=== PATIENT | female | born 1995 | race Caucasian/White ===

== ENCOUNTER 2017-11-22 00:18 | Outpatient (CLI) | payer BC, SELFPAY ==
[2017-11-22] MEDS: Gadoterate meglumine 20 ML VIAL 15 ML IVP (08:35)
--- NOTE | 2017-11-22 08:45 | DI.MRI_ITS ---
SYMPTOM/DIAGNOSIS: ATYPICAL HEADACHE, R51, NEW ONSET, ? TRIGEMINAL NEURALGIA, VS SUNCT/JARVIS, ? SECONDARY HEADACHE BRAIN MRI: Pre and post contrast examination was performed. No priors. There is normal signal. The diffusion weighted images have a normal appearance. The hem sensitive images show no evidence of intracranial hemorrhage. No intracranial mass, midline shift or mass effect is identified. The ventricles are intact. The basilar cisterns are patent. There is a normal flow void in the [place]. The visualized paranasal sinuses are clear. The pituitary gland is unremarkable. Post contrast images show no enhancing lesions. IMPRESSION; Negative MRI of the brain.
== END 2017-11-22 00:38 ==
PROVIDERS: PCP Internal Medicine; Visit Provider Nurse Practitioner
DX: R51 Headache (principal)
CPT/HCPCS: 70553

== ENCOUNTER 2018-05-20 11:38 | Outpatient (REF) | payer BC, SELFPAY ==
--- NOTE | 2018-05-20 11:15 | PAPFT_PTH ---
PATIENT: Nidia Moore LOC: [facility] U#:[id number] AGE/SX: 23/F ROOM: RE05/20/[address]: MINE Mckeon : 1995 BED: DIS: 05/20/2018 SPEC #: [id number] RECD: 05/20/18 18:09 STATUS: LAUREN HERNÁNDEZ #: [id number] OLIVIA: 05/20/18 11:[address]: Jennifer Nuñez DEPT: [facility] Cytology RECD BY: Haleigh Boyce ENTERED: 05/20/18 18:10 SP TYPE: PAPFT OTHR DR: Joe Villanueva Tissues: 1 - CX/ENDOCX FOR PAP SMEARS Procedures: PAP THIN PREP/UVM Screening Comments: [id number]
== END 2018-05-20 11:58 ==
LOC: LBN 11:38
PROVIDERS: PCP Internal Medicine; Visit Provider Nurse Practitioner Family
DX: Z12.4 Encounter for screening for malignant neoplasm of cervix (principal)
CPT/HCPCS: 88142

== ENCOUNTER 2019-01-23 10:35 | Outpatient (CLI) | payer BC, SELFPAY ==
[2019-01-23 12:50] LABS: HCG Quant, Pregnancy 17 mIU/mL (1-3); TSH 4.08 uIU/mL (0.36-3.74)
[2019-01-23 13:14] LABS: FREE T4 0.97 ng/dL (0.76-1.46)
== END 2019-01-23 10:55 ==
PROVIDERS: PCP Internal Medicine; Visit Provider Nurse Practitioner Family
DX: E03.9 Hypothyroidism, unspecified (principal); N92.6 Irregular menstruation, unspecified
CPT/HCPCS: 36415; 84439; 84443; 84702

== ENCOUNTER 2019-01-27 08:31 | Outpatient (CLI) | payer BC, SELFPAY ==
[2019-01-27 09:18] LABS: HCG Quant, Pregnancy 198 mIU/mL (1-3)
== END 2019-01-27 08:51 ==
PROVIDERS: PCP Internal Medicine; Visit Provider Nurse Practitioner Family
DX: N92.6 Irregular menstruation, unspecified (principal)
CPT/HCPCS: 36415; 84702

== ENCOUNTER 2019-02-04 14:22 | Outpatient (CLI) | payer BC, SELFPAY ==
--- NOTE | 2019-02-04 15:02 | DI.US_ITS ---
EXAM: US OB TRANSVAGINAL CLINICAL HISTORY: 6 WEEKS BY LMP, CONSISTENT UNILATERAL PAIN R/O ECTOPIC, Z32.1 TECHNIQUE: Ultrasound performed using standard protocol. Transabdominal and transvaginal exams wer e performed. COMPARISON: No exams were available for comparison FINDINGS: The uterus measures 7.2 x 3.8 x 1.8. The right ovary appears normal. Gestational sac is noted withi n the uterus seen on the transvaginal images. The yolk sac is seen. No pole is able to be vis ualized at this time. The gestational sac diameter corresponds to 5 weeks 5 days. No free fluid or hydronephrosis is seen. IMPRESSION: Gestational sac within the endometrium with measurements corresponding to 5 weeks 5 days. No p ole is visible. Correlation with beta hCG values is recommended.
== END 2019-02-04 14:42 ==
PROVIDERS: PCP Internal Medicine; Visit Provider Advanced Practice Midwife
DX: Z32.01 Encounter for pregnancy test, result positive (principal); Z3A.01 Less than 8 weeks gestation of pregnancy
CPT/HCPCS: 76817

== ENCOUNTER 2019-03-06 09:47 | Outpatient (CLI) | payer BC, SELFPAY ==
[2019-03-06 10:20] LABS: Absolute Basophil Count 0.01 k/cumm (0.0-0.2); Absolute Eosinophil Count 0.09 k/cumm (0.0-0.7); Absolute Lymphocyte Count 1.44 k/cumm (1.2-3.4); Absolute Monocyte Count 0.49 k/cumm (0.11-0.7); Absolute Neutrophil Count 4.98 k/cumm (1.2-6.7); Basophils % 0.1; Eosinophils % 1.3; HGB 13.6 g/dL (12.0-15.5); Lymphocytes % 20.5; Mean Corp. HGB Concentration 34.9 g/dL (32.0-36.0); Mean Corpuscular Hemoglobin 30.6 pg (27.0-33.0); Mean Corpuscular Volume 87.8 fL (80-95); Mean Platelet Volume 9.4 fL (8.0-11.0); Neutrophils % 71.1; Platelet Count 276 x1000/uL (130-400); RBC 4.44 m/cumm (4.00-5.20); RBC Distribution Width 12.2 % (11.7-14.6); White Blood Cell Count 7.01 k/cumm (4.4-10.8)
[2019-03-06 11:23] LABS: TSH (W/Ref FT4) 1.72 uIU/mL (0.36-3.74)
[2019-03-07 09:17] LABS: Hepatitis B Surface Ag Negative (Negative)
[2019-03-07 10:48] LABS: Hepatitis C Ab w Rflx HCV PCR Negative (Negative)
[2019-03-07 10:49] LABS: HIV-1/2 Ag & Ab Screen Negative (Negative)
[2019-03-07 11:48] LABS: Varicella IgG Antibody Positive (See Note)
[2019-03-07 14:06] LABS: Rubella IgG Ab (UVM) Positive (See Note)
[2019-03-07 16:26] LABS: Syphilis Total Ab w/Reflex Nonreactive (Nonreactive)
== END 2019-03-06 10:07 ==
PROVIDERS: PCP Internal Medicine; Visit Provider Advanced Practice Midwife
DX: Z34.91 Encounter for supervision of normal pregnancy, unspecified, first trimester (principal); Z11.4 Encounter for screening for human immunodeficiency virus [HIV]; Z11.59 Encounter for screening for other viral diseases; Z01.84 Encounter for antibody response examination
CPT/HCPCS: 36415; 80307; 86787; 86803; 86850; 86900; 86901; 87340; 87389; 84443; 85025; 86762; 86780; 87086

== ENCOUNTER 2019-03-06 10:54 | Outpatient (REF) | payer BC, SELFPAY ==
[2019-03-06 11:37] LABS: *AMPHETAMINES SCREEN URINE Negative (Negative); *BARBITURATES SCREEN URINE Negative (Negative); *BENZODIAZEPINES SCREEN URINE Negative (Negative); Cannabinoids THC Negative (Negative); Cocaine Screen,Urine Negative (Negative); METHADONE URINE SCREEN Negative (Negative); OPIATES URINE SCREEN Negative (Negative)
[2019-03-06 11:38] LABS: Tricyclic Antidepressants Negative (Negative)
[2019-03-07 13:00] LABS: Chlamydia Result Negative (Negative); GC Result Negative (Negative)
[2019-03-11 13:57] LABS: Buprenorphine Negative; Norbuprenorphine Negative
== END 2019-03-06 11:14 ==
LOC: LBN 10:54
PROVIDERS: PCP Internal Medicine; Visit Provider Advanced Practice Midwife
DX: Z34.91 Encounter for supervision of normal pregnancy, unspecified, first trimester (principal); Z11.3 Encounter for screening for infections with a predominantly sexual mode of transmission
CPT/HCPCS: 80307; 87491; 87591; 87086

== ENCOUNTER 2019-03-18 09:19 | Outpatient (CLI) | payer BC, SELFPAY ==
[2019-03-18 10:16] LABS: Kit/Specimen SENT
[2019-03-22 01:38] LABS: Result Summary NEGATIVE; Specimen WB Whole Blood
[2019-03-22 01:47] LABS: Specimen WB Whole Blood
[2019-03-31 00:01] LABS: Result Summary NEGATIVE; Specimen WB Whole Blood
== END 2019-03-18 09:39 ==
PROVIDERS: PCP Internal Medicine; Visit Provider Advanced Practice Midwife
DX: Z34.91 Encounter for supervision of normal pregnancy, unspecified, first trimester (principal); Z36.89 Encounter for other specified antenatal screening
CPT/HCPCS: 36415; 81329; 86652; 81220

== ENCOUNTER 2019-05-13 02:14 | Outpatient (CLI) | payer BC, SELFPAY ==
--- NOTE | 2019-05-13 09:45 | DI.US_ITS ---
EXAM: US OB 2-3 TRIMESTER CLINICAL HISTORY: 18 wk anatomy survey, Z34.90 TECHNIQUE: Ultrasound performed using standard protocol. COMPARISON: US OB TRANSVAGINAL from 02/04/2019 FINDINGS: Ob ultrasound was performed according to the 2nd trimester protocol. biometry is consistent wi th gestational age of 18 weeks 0 days and EDC of 10/07/2019. Placenta is posterior with no evidence of placenta previa. There is a normal quantity of amniotic fluid. anomaly screen is within normal limits as per the attached checklist. heart rate was 162 BPM. DATA REPOSITORY:
== END 2019-05-13 02:34 ==
PROVIDERS: PCP Internal Medicine; Visit Provider Advanced Practice Midwife
DX: Z34.92 Encounter for supervision of normal pregnancy, unspecified, second trimester (principal); Z3A.18 18 weeks gestation of pregnancy
CPT/HCPCS: 76805

== ENCOUNTER 2019-07-15 01:47 | Outpatient (CLI) | payer BC, SELFPAY ==
[2019-07-15 08:33] LABS: TSH (W/Ref FT4) 2.39 uIU/mL (0.36-3.74)
== END 2019-07-15 02:07 ==
PROVIDERS: PCP Internal Medicine; Visit Provider Advanced Practice Midwife
DX: E03.9 Hypothyroidism, unspecified (principal)
CPT/HCPCS: 84443

== ENCOUNTER 2019-07-22 04:39 | Outpatient (CLI) | payer BC, SELFPAY ==
[2019-07-22 10:57] LABS: HCT 40.5 % (36.0-46.0); HGB 14.2 g/dL (12.0-15.5); Mean Corp. HGB Concentration 35.1 g/dL (32.0-36.0); Mean Corpuscular Hemoglobin 31.3 pg (27.0-33.0); Mean Corpuscular Volume 89.2 fL (80-95); Mean Platelet Volume 10.4 fL (8.0-11.0); Platelet Count 240 x1000/uL (130-400); RBC 4.54 m/cumm (4.00-5.20); RBC Distribution Width 12.9 % (11.7-14.6); White Blood Cell Count 9.98 k/cumm (4.4-10.8)
[2019-07-22 11:02] LABS: Glucose,1 Hr (Glucola) 110 mg/dL (80-140)
== END 2019-07-22 04:59 ==
PROVIDERS: PCP Internal Medicine; Visit Provider Advanced Practice Midwife
DX: Z34.93 Encounter for supervision of normal pregnancy, unspecified, third trimester (principal)
CPT/HCPCS: 36415; 82950; 85027

== ENCOUNTER 2019-09-16 10:22 | Outpatient (CLI) | payer BC, SELFPAY ==
[2019-09-16 11:32] LABS: HGB 15.3 g/dL (11.2-15.7); RBC 4.95 10^6/uL (3.93-5.22); WBC 10.71 10^3/uL (4.4-10.8)
[2019-09-16 11:33] LABS: HCT 44.2 % (36.0-46.0); MCH 30.9 pg (27.0-33.0); MCHC 34.6 % (32.0-36.0); MCV 89.3 fL (80-95); MPV 10.5 fL (8.0-11.0); Platelet Count 200 10^3/uL (130-400); RDW 12.8 % (11.7-14.6)
[2019-09-16 11:48] LABS: ALT 17 U/L (14-59); AST 17 U/L (15-37); Albumin 2.7 g/dL (3.4-5.0); Alkaline Phosphatase 161 U/L (46-116); Anion Gap 9.1 mmol/L (3-11); BUN 11 mg/dL (7-18); Bilirubin, Total 0.5 mg/dL (0.2-1.0); CO2 23.9 mmol/L (21.0-32.0); CREATININE 0.57 mg/dL (0.55-1.02); Calcium 8.8 mg/dL (8.5-10.1); Chloride 102 mmol/L (98-107); Glucose 74 mg/dL (74-106); Potassium 4.1 mmol/L (3.5-5.1); Sodium 135 mmol/L (136-145); Total Protein 5.9 g/dL (6.4-8.2); Uric Acid 4.4 mg/dL (2.6-6.0)
[2019-09-16 11:58] LABS: COMMENT (LAB VIEW ONLY) 76.52 mg/dL; PROTEIN 13.6 mg/dL; Prot/Crea Ur Ratio 0.17
[2019-09-16 12:24] LABS: TSH 2.05 uIU/mL (0.36-3.74)
[2019-09-16 12:31] LABS: FREE T4 1.01 ng/dL (0.76-1.46)
== END 2019-09-16 10:42 ==
PROVIDERS: Advanced Practice Midwife; PCP Internal Medicine; Visit Provider Advanced Practice Midwife
DX: O13.3 Gestational [pregnancy-induced] hypertension without significant proteinuria, third trimester (principal); Z3A.36 36 weeks gestation of pregnancy
CPT/HCPCS: 36415; 80053; 85027; 59025; 82565; 84156; 84439; 84443; 84550

== ENCOUNTER 2019-09-16 12:50 | Outpatient (REF) | payer BC, SELFPAY ==
[2019-09-16 15:45] LABS: *AMPHETAMINES SCREEN URINE Negative (Negative); *BARBITURATES SCREEN URINE Negative (Negative); *BENZODIAZEPINES SCREEN URINE Negative (Negative); Cannabinoids THC Negative (Negative); Cocaine Screen,Urine Negative (Negative); METHADONE URINE SCREEN Negative (Negative); OPIATES URINE SCREEN Negative (Negative); Tricyclic Antidepressants Negative (Negative)
[2019-09-22 13:20] LABS: Misc Referral (UVM) See Comments
[2019-09-25 13:16] LABS: Buprenorphine Negative; Norbuprenorphine Negative
== END 2019-09-16 13:10 ==
LOC: LBN 12:50
PROVIDERS: PCP Internal Medicine; Visit Provider Advanced Practice Midwife
DX: Z34.90 Encounter for supervision of normal pregnancy, unspecified, unspecified trimester (principal)
CPT/HCPCS: 80307; 87653; 87081

== ENCOUNTER 2019-09-22 15:04 | Outpatient (REF) | payer BC, SELFPAY | END 2019-09-22 15:24 | LOC: LBN 15:04 | PROVIDERS: PCP Internal Medicine; Visit Provider Advanced Practice Midwife | DX: Z34.90 Encounter for supervision of normal pregnancy, unspecified, unspecified trimester (principal) | CPT/HCPCS: 87081 ==

== ENCOUNTER 2019-09-29 11:40 | Outpatient (CLI) | payer BC, SELFPAY ==
[2019-09-29 12:39] LABS: HCT 41.2 % (36.0-46.0); HGB 14.1 g/dL (11.2-15.7); MCH 30.7 pg (27.0-33.0); MCHC 34.2 % (32.0-36.0); MCV 89.8 fL (80-95); MPV 11.2 fL (8.0-11.0); Platelet Count 218 10^3/uL (130-400); RBC 4.59 10^6/uL (3.93-5.22); RDW 12.2 % (11.7-14.6); RDW-SD 40.1 fL; WBC 9.17 10^3/uL (4.4-10.8)
[2019-09-29 13:37] LABS: PROTEIN 15.9 mg/dL
[2019-09-29 13:38] LABS: COMMENT (LAB VIEW ONLY) 123.32 mg/dL; Prot/Crea Ur Ratio 0.12
[2019-09-29 13:40] LABS: ALT 18 U/L (14-59); AST 16 U/L (15-37); Albumin 2.5 g/dL (3.4-5.0); Alkaline Phosphatase 159 U/L (46-116); Anion Gap 10.5 mmol/L (3-11); BUN 11 mg/dL (7-18); Bilirubin, Total 0.3 mg/dL (0.2-1.0); CO2 21.5 mmol/L (21.0-32.0); CREATININE 0.55 mg/dL (0.55-1.02); Calcium 8.5 mg/dL (8.5-10.1); Chloride 105 mmol/L (98-107); Glucose 78 mg/dL (74-106); Potassium 4.2 mmol/L (3.5-5.1); Sodium 137 mmol/L (136-145); Uric Acid 4.7 mg/dL (2.6-6.0)
== END 2019-09-29 12:00 ==
PROVIDERS: PCP Internal Medicine; Visit Provider Advanced Practice Midwife
DX: O13.3 Gestational [pregnancy-induced] hypertension without significant proteinuria, third trimester (principal); Z3A.37 37 weeks gestation of pregnancy
CPT/HCPCS: 36415; 80053; 85027; 59025; 82565; 84156; 84550

== ENCOUNTER 2019-10-10 03:11 | Outpatient (CLI) | payer BC, SELFPAY ==
[2019-10-10 15:08] LABS: HCT 41.3 % (36.0-46.0); HGB 14.5 g/dL (11.2-15.7); MCH 31.7 pg (27.0-33.0); MCHC 35.1 % (32.0-36.0); MCV 90.2 fL (80-95); MPV 11.2 fL (8.0-11.0); Platelet Count 222 10^3/uL (130-400); RBC 4.58 10^6/uL (3.93-5.22); RDW 12.2 % (11.7-14.6); RDW-SD 39.9 fL; WBC 9.17 10^3/uL (4.4-10.8)
[2019-10-10 15:48] LABS: ALT 19 U/L (14-59); AST 18 U/L (15-37); Albumin 2.7 g/dL (3.4-5.0); Alkaline Phosphatase 174 U/L (46-116); Anion Gap 11.2 mmol/L (3-11); BUN 11 mg/dL (7-18); Bilirubin, Total 0.3 mg/dL (0.2-1.0); CO2 22.8 mmol/L (21.0-32.0); CREATININE 0.76 mg/dL (0.55-1.02); Calcium 8.5 mg/dL (8.5-10.1); Chloride 104 mmol/L (98-107); Glucose 131 mg/dL (74-106); Potassium 3.6 mmol/L (3.5-5.1); Sodium 138 mmol/L (136-145); Total Protein 5.3 g/dL (6.4-8.2); Uric Acid 5.5 mg/dL (2.6-6.0)
== END 2019-10-10 03:31 ==
PROVIDERS: PCP Internal Medicine; Visit Provider Advanced Practice Midwife
DX: O13.3 Gestational [pregnancy-induced] hypertension without significant proteinuria, third trimester (principal)
CPT/HCPCS: 36415; 80053; 85027; 84550

== ENCOUNTER 2019-10-14 09:53 | Outpatient (REF) | payer BC, SELFPAY ==
[2019-10-14 12:02] LABS: PROTEIN 40.2 mg/dL
[2019-10-14 12:03] LABS: COMMENT (LAB VIEW ONLY) 276.36 mg/dL; Prot/Crea Ur Ratio 0.14
== END 2019-10-14 10:13 ==
LOC: LBN 09:53
PROVIDERS: PCP Internal Medicine; Visit Provider Advanced Practice Midwife
DX: O16.3 Unspecified maternal hypertension, third trimester (principal)
CPT/HCPCS: 82565; 84156

== ENCOUNTER 2019-10-14 23:59 | Inpatient (IN) | payer BC, SELFPAY ==
[2019-10-15 05:23] LABS: Abs Immature Grans 0.06 10^3/uL (0.0-0.06); Absolute Basophil Count 0.02 10^3/uL (0.0-0.2); Absolute Eosinophil Count 0.02 10^3/uL (0.0-0.7); Absolute Lymphocyte Count 1.19 10^3/uL (1.2-3.4); Absolute Neutrophil Count 13.91 10^3/uL (1.2-6.7); Basophils % 0.1; Eosinophils % 0.1; HCT 43.1 % (36.0-46.0); HGB 14.9 g/dL (11.2-15.7); Immature Grans % 0.4; Lymphocytes % 7.5; MCHC 34.6 % (32.0-36.0); MCV 89.6 fL (80-95); MPV 11.2 fL (8.0-11.0); Monocytes % 4.5; Neutrophils % 87.4; Nucleated RBC 0 %; Platelet Count 227 10^3/uL (130-400); RBC 4.81 10^6/uL (3.93-5.22); RDW 11.9 % (11.7-14.6); RDW-SD 39.1 fL; WBC 15.91 10^3/uL (4.4-10.8)
[2019-10-15 05:26] LABS: Absolute Monocyte Count 0.72 10^3/uL (0.1-0.8)
[2019-10-15] MEDS: FentaNYL/ROPIvacaine 2 mcg/ml and 0.1% 200 ML CADD Cassette EP ×2 (07:06→17:13)
[2019-10-15] MEDS: Oxytocin/Normal Saline 30 UNITS/500 ML BAG IV (11:09)
[2019-10-15] MEDS: Lactated Ringers 1,000 ML 125 ML IV ×2 (11:45→16:34)
[2019-10-15 12:57] LABS: COVID-19 RT-PCR UVMMC Result Negative (Negative)
[2019-10-15] MEDS: Hamamelis Leaf/Glycerin 100 EACH BOX PR (20:48)
[2019-10-15] MEDS: Acetaminophen 325 MG TAB 650 MG PO (20:48)
[2019-10-15] MEDS: Docusate Sodium 100 MG CAP PO (20:48)
[2019-10-15] MEDS: Ibuprofen 600 MG TAB PO (20:48)
[2019-10-15] MEDS: Levothyroxine 50 MCG TAB PO (22:05)
[2019-10-16 06:36] LABS: HCT 33.5 % (36.0-46.0); HGB 11.7 g/dL (11.2-15.7); MCH 31.3 pg (27.0-33.0); MCHC 34.9 % (32.0-36.0); MCV 89.6 fL (80-95); MPV 11.1 fL (8.0-11.0); Platelet Count 193 10^3/uL (130-400); RBC 3.74 10^6/uL (3.93-5.22); RDW 12.3 % (11.7-14.6); RDW-SD 39.9 fL; WBC 17.65 10^3/uL (4.4-10.8)
[2019-10-16] MEDS: Acetaminophen 325 MG TAB 650 MG PO ×2 (08:07→22:08)
[2019-10-16] MEDS: Ibuprofen 600 MG TAB PO ×3 (08:07→22:08)
[2019-10-16] MEDS: Docusate Sodium 100 MG CAP PO (16:29)
[2019-10-16] MEDS: Levothyroxine 50 MCG TAB PO (22:08)
[2019-10-17] MEDS: Acetaminophen 325 MG TAB 650 MG PO ×2 (09:04→15:51)
[2019-10-17] MEDS: Ibuprofen 600 MG TAB PO ×3 (09:05→21:47)
[2019-10-17] MEDS: Levothyroxine 50 MCG TAB PO (21:47)
[2019-10-18] MEDS: Ibuprofen 600 MG TAB PO (08:20)
== END 2019-10-18 12:30 | disposition home or self-care (01) | DRG 807 ==
PROVIDERS: Advanced Practice Midwife; Admitting Provider Advanced Practice Midwife; PCP Internal Medicine; Visit Provider Advanced Practice Midwife
DX: Z37.0 Single live birth (principal); O62.1 Secondary uterine inertia; O76 Abnormality in fetal heart rate and rhythm complicating labor and delivery; O70.0 First degree perineal laceration during delivery; O69.3XX0 Labor and delivery complicated by short cord, not applicable or unspecified; O74.8 Other complications of anesthesia during labor and delivery; O75.89 Other specified complications of labor and delivery; O32.8XX0 Maternal care for other malpresentation of fetus, not applicable or unspecified; O48.0 Post-term pregnancy; O42.02 Full-term premature rupture of membranes, onset of labor within 24 hours of rupture; O99.284 Endocrine, nutritional and metabolic diseases complicating childbirth; Z3A.40 40 weeks gestation of pregnancy; E03.9 Hypothyroidism, unspecified; I95.9 Hypotension, unspecified; E86.0 Dehydration; O92.29 Other disorders of breast associated with pregnancy and the puerperium; Z67.10 Type A blood, Rh positive; Z11.59 Encounter for screening for other viral diseases
CPT/HCPCS: 36415; 85027; 86850; 86900; 86901; U0003; 85025; G0378

== ENCOUNTER 2019-11-19 13:35 | Outpatient (CLI) | payer BC, SELFPAY ==
--- NOTE | 2019-11-19 14:58 | LCF_ITS ---
Date of service: 11/19/19 Time of Service: 11:20 Feeding Plan Recommendation Family: Bring baby and parent together-Resolving the problem may take some time *[id number]-[id number] as much as possible. *30-45 minutes:keep all feeding/pumping together *Balance your efforts *Track your progress feeding and pumping Self Care: Take Care of yourself- Eat well, drink as you're thirsty, rest with baby Breasts: Massage your breasts before feeding or pumping or if breasts feel full. Prevent engorgement by feeding frequently. Warm packs BEFORE feeding. Cool packs BETWEEN feedings if still firm. Ibuprofen if recommended by your provider. Nipples: Mother Love/Hydrogel if needed Contacts: -Contact Residential Sales Representative for further support, if nipples become more uncomfortable or if nipple trauma develops. -Contact your bar finish operator or OB provider promptly if you have any signs of infection or mastitis: fever, chills, shaking, feeling like you are getting the flu, redness, drainage or tenderness of your breast. -Contact infant?s director clinical applications/family doctor/PCP with any medical concerns or if infant is not meeting recommended or output goals or if any concerns about maternal medications and . Note Note: Couplet visited IBCLC on the Center per appointement. Simone notes resolved infant is feeding well at breast, resolved mastitis, hx of lost supply that has responded to pumping and resolved thrush. Mother has c/o persistent nipple pain. Nidia deisre to brestfeed. Mother states some challenges with learning to get things done while feeding and IBCLC counseled working with a carrier that worked for her. Partner is involved, supportive. Mother has a breast pump. Con has an adequate physical readiness to feed that is consistent with his gestational age. Per mother he has adequate wieght gain at MD's office. His output is adequate for age. His oral facial exam is symmetrical and intact. His superior labial frenulum is a little tight and he has full jaw extension. Feeding hx: 8-10/24h lasting 15-20 minutes per side. Mother pumps once a day for anticipated respite. Mother states some nipple and areolar pain /c pumping, confirms adequate flange fit and suction. Potentilly this is related to a hx of oversupply. Feeding assessment: Con fed on the left side in cross cradle. Nidia applies shield well, uses good technique, nipple to nose, adducts for deep latch. Con had a wide gape, deep latch and rhythmic suck with mature suck burst ratio. Swallow frequency is 3-4 with shield and IBCLC inquired about latching without the shield. IBCLC counseled about even milk removal and potential incresed comfort at breast. Mother stts she has tried, but Con often releases latch. IBCLC assisted /c latch without shield per maternal consent and had a persistent latch and suck. IBCLC deferred to maternal preference and mother placed the shield back on. was satisfied at the end of a 15 minute feeding./ MOther states bilateral breast comfort /c some discomfort with let down. IBCLC counseld this could be r/t oversupply citing over distension. MOther's bresats are symmetrical softer after feeding, pendulous and medium in size, venation WNL. Mother has c/o nipple pain bilaterally /c deep pressure. Mother denies hx of raynauds or autoimmune or pain related illness. MOther's nipples are pink, small diameter, short shaft length, a little pink, skin intact. left nipple has a healing crack on the top of the nipple face. Mother states pain and nipple appearance are consistent and skin is smooth; couplet are s/p trx for thrush. IBCLC reviewed ABM protocol 26 /c mom, noting that nipple pain can be attributed to over supply. Mother states some comfort in the explanation and positive that her body responded /c using the pump and plans to limit use to prn. Mother states comfort /c visit and plans to continue feeding plan and f/u /c Dr. Villanueva. Education Reviewed: Other (reviewed ABM #26) Subjective Concerns Parental Concerns: nipple pain, hx of thrush Maternal or Provider Concerns: nipple pain Goals: Feed exclusively at breast Changes since last visit: feeding exclusively at breast using a nipple shield NB Physical Readiness to Feed Flexion/Tone: Normal Skin: Normal Respiratory: Normal Head: Normal Alertness/Interest: Normal GI/Diaper Area: Normal Assessment Optimal Readiness to Feed: Adequate Physical Readiness and Age Appropriate Feed ing Behavior Oral/Facial Exam Facial status at rest and with movement: Normal Gums: Normal Jaw/Maxillary and Mandibular symmetry: Normal Jaw Placement: Normal Jaw Tension: Normal Jaw Movement: Normal Buccal assessment: Normal Buccal Strength: Normal Superior frenulum flange: Abnormal : Flange to nose with tension Superior frenulum attachment: Normal Inferior labial frenulum: Normal Lips - cleft: Normal Lips - Appearance: Normal Lip tone at rest: Normal Lip strength, response to sensation: Normal Lip chin position and movement: Normal Hard palate: Normal Soft palate: Normal Tongue appearance: Normal Lingual frenulum attachment to tongue: Normal Lingual frenulum attachment to lower gum: Normal Functional suck pattern at breast: Normal Functional Suck Pattern: Mature: 10+ sucks/burst Perseveration while feeding: Normal Mucosa: Normal Gag reflex: Normal Feeding Assessment Feeding Assessment Rousing for Feeds: Rousing for All Feeds Maternal independence: Normal Initiation of feeding/Readiness to feed: Normal Pre-feeding position: Normal Action taken: Other (interrupted and positioned without shield) Response to repositioning: Normal Attachment: Abnormal (Nidia notes infant releases latch when not using the shield, IBCLC Noted more swallowing without shield) Latch: Normal Suck: Normal Jaw excursions: Normal Swallows: Normal Swallow count: Abnormal : Suck/swallow ratio >3-4/1 (with shield on) Maternal comfort with feeding: Normal (states nipple comfort without shield) Nipple after feed: Normal (no blanching or changes with feeding) Satiety: Normal Quality (cue-based feeding scale) - : Normal
== END 2019-11-19 13:55 ==
PROVIDERS: PCP Internal Medicine; Visit Provider Advanced Practice Midwife
DX: Z39.1 Encounter for care and examination of lactating mother (principal)

== ENCOUNTER 2019-11-25 16:18 | Outpatient (REF) | payer BC, SELFPAY | END 2019-11-25 16:38 | LOC: LBN 16:18 | PROVIDERS: PCP Internal Medicine; Visit Provider Advanced Practice Midwife | DX: N89.8 Other specified noninflammatory disorders of vagina (principal) | CPT/HCPCS: 87480; 87510; 87660 ==

== ENCOUNTER 2020-01-06 16:39 | Outpatient (REF) | payer BC, SELFPAY | END 2020-01-06 16:59 | LOC: LBN 16:39 | PROVIDERS: PCP Internal Medicine; Visit Provider Advanced Practice Midwife | DX: N89.8 Other specified noninflammatory disorders of vagina (principal) | CPT/HCPCS: 87480; 87510; 87660 ==

== ENCOUNTER 2020-04-22 20:44 | Outpatient (REF) | payer BC, SELFPAY ==
[2020-04-22 21:31] LABS: TSH (W/Ref FT4) 1.42 uIU/mL (0.36-3.74)
== END 2020-04-22 20:45 | disposition home or self-care (01) ==
LOC: NCHCN 20:44
PROVIDERS: PCP Internal Medicine; Visit Provider Nurse Practitioner Family
DX: E03.9 Hypothyroidism, unspecified (principal)
CPT/HCPCS: 84443

== ENCOUNTER 2020-10-21 15:08 | Outpatient (CLI) | payer BC, SELFPAY ==
--- NOTE | 2020-10-21 | DI.RAD_ITS ---
Exam(s) XR HAND RT COMPLETE EXAM: XR HAND RT COMPLETE CLINICAL HISTORY: RT HAND JOINT PAIN M79.641. TECHNIQUE: 2D digital imaging was performed. COMPARISON: CR RIGHT HAND COMPLETE from 05/06/2009 FINDINGS: BONES: No acute fracture is present. No bony destructive lesion is seen. JOINTS: No dislocation present. SOFT TISSUE: Normal. IMPRESSION: Unremarkable radiographs of the right hand. DATA REPOSITORY: RADIATION DOSE DELIVERED:
== END 2020-10-21 15:28 ==
PROVIDERS: PCP Internal Medicine; Visit Provider Nurse Practitioner Family
DX: M79.641 Pain in right hand (principal)
CPT/HCPCS: 73130

== ENCOUNTER 2021-06-14 11:26 | Outpatient (REF) | payer MEDICAID, SELFPAY ==
--- NOTE | 2021-06-14 10:30 | PAPFT_PTH ---
PATIENT: Nidia Moore LOC: [facility]#:[id number] AGE/SX: / ROOM: RE06/14/[address]: Kamilah Solo : 1995 BED: DIS: 06/14/2021 SPEC #: [id number] RECD: 06/14/21 17:40 STATUS: LAUREN REHan #: [id number] OLIVIA: 06/14/21 10:[address]: Kamilah Solo [facility]PT: [facility] Cytology RECD BY: Haleigh Boyce ENTERED: 06/14/21 17:41 SP TYPE: PAPFT OTHR DR: Joe Villanueva Tissues: 1 - CX/ENDOCX FOR PAP SMEARS Procedures: PAP THIN PREP/UVM Screening HPV DNA PROBE Comments: [id number] (CHLAMYDIA/GC)
[2021-06-15 14:16] LABS: Chlamydia Result Negative (Negative); GC Result Negative (Negative)
== END 2021-06-14 11:27 | disposition home or self-care (01) ==
LOC: NCHCN 11:26
PROVIDERS: PCP Internal Medicine; Visit Provider Nurse Practitioner Family
DX: Z12.4 Encounter for screening for malignant neoplasm of cervix (principal); Z11.51 Encounter for screening for human papillomavirus (HPV); Z01.419 Encounter for gynecological examination (general) (routine) without abnormal findings
CPT/HCPCS: 87491; 87591; 88142; 87624

== ENCOUNTER 2021-08-15 17:39 | Outpatient (REF) | payer MEDICAID, SELFPAY ==
[2021-08-15 15:22] LABS: ALT 21 U/L (14-59); AST 17 U/L (15-37); Albumin 3.9 g/dL (3.4-5.0); Alkaline Phosphatase 58 U/L (46-116); Anion Gap 7.9 mmol/L (3-11); BUN 16 mg/dL (7-18); Bilirubin, Total 0.6 mg/dL (0.2-1.0); CO2 28.1 mmol/L (21.0-32.0); CREATININE 0.8 mg/dL (0.55-1.02); Calcium 8.8 mg/dL (8.5-10.1); Chloride 105 mmol/L (98-107); Glucose 94 mg/dL (74-106); Potassium 4.5 mmol/L (3.5-5.1); Sodium 141 mmol/L (136-145); Total Protein 6.4 g/dL (6.4-8.2)
--- OUTSIDE RECORDS SUMMARY | 2021-08-15 17:41 | XMS_ITS | Encounter Summary ---
:1995 Demographics Home Phone Preferred Language Unknown Marital Status Unknown Episcopalian Affiliation Unknown Race Unknown Ethnic Group Unknown Author Organization [facility] Address [address] [place] [address] Care Team Providers Name Role Phone Unavailable Primary Care Provider Unavailable Encounter Details Date Type Department Care Team Description 03/06/2019 Lab Requisition [facility] Unknown, Provider, Pathology & Laboratory [facility] [address] [place] [address] [place] [address] Social History Tobacco Use Types Packs/Day Years Used Date Never Assessed Sex Assigned at Date Recorded Not on file documented as of this encounter Plan of Treatment Not on filedocumented as of this encounter Procedures Procedure Name Priority Date/Time Associated Comments Diagnosis HIV 1/2 ANTIGEN AND Routine 03/06/2019 10:05 Resu lts for this ANTIBODY, 4TH EST procedure are in GENERATION the results section. documented in this encounter Results HIV 1/2 ANTIGEN AND ANTIBODY, 4TH GENERATION (03/06/2019 10:05 EST) HIV 1 and 2 Negative Negative [facility] Antibody/p24 Comment: LABORATORY Antigen, 4th SERVICES Generation If acute HIV-1 infection is suspected in a high risk ??patient, submit plasma specimen for HIV-1 RNA quantitation test. Fourth Generation assay performed on the [employer]. Specimen Blood - Venous blood (substance) Performing Organization Address City/State/ZIP Code Phon e Number [facility] LABORATORY [address] [place] [address] SERVICES documented in this encounter Visit Diagnoses Not on filedocumented in this encounter
--- OUTSIDE RECORDS SUMMARY | 2021-08-15 17:41 | XMS_ITS | Encounter Summary ---
:1995 Author Organization [facility] [place] [address] Care Team Providers Name Role Phone Kathie Hannah APRN Primary Care Provider Reason for Visit Reason Comments Hypothyroidism Consultation (Routine) - Closed Specialty Diagnoses / Procedures Referred By Contact Refer red To Contact Endocrinology Diagnoses hypothyroidism, having bouts of not feeling well and being tired on meds Kathie Hnanah [facility] Endocrinology [address] [address] [place] [address] Referral ID Status Reason Start Date Expiration Date Visits V isits Requested Authorized [id number] Closed Consult, 05/25/2017 05/25/2018 1 1 [facility] Encounter Details Date Type Department Care Team Description 10/18/2017 Office Visit Endocrinology at [facility] C Shaan Burch, 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; [facility] [place] [address] CENTER [phone] [place] [address] Social History Tobacco Use Types Packs/Day Years Used Date Never Smoker Smokeless Tobacco: Never Used Sex Assigned at Date Recorded Not on file documented as of this encounter Last Filed Vital Signs Vital Sign Reading Time Taken Comments Blood Pressure 138/73 10/18/2017 8:09 AM EDT Pulse 82 10/18/2017 8:09 AM EDT Temperature - - Respiratory Rate - - Oxygen Saturation - - Inhaled Oxygen Concentration - - Weight 76.8 kg (169 lb 4.8 oz) 10/18/2017 8:09 AM EDT Height 160 cm (5' 3) 10/18/2017 8:09 AM EDT Body Mass Index 29.99 10/18/2017 8:09 AM EDT documented in this encounter Progress Notes Shaan Burch, - 10/18/2017 8:00 AM EDT Endocrinology Consult Patient Name: Nidia Blanton Date of : 1995 PCP: Kathie Hannah APRN HISTORY OF PRESENT ILLNESS: Nidia Blanton is a very pleasant 22 y.o. female who presents for evaluation of abnormal thyroid testing. At the time of diagnosis she was experiencing continuous vaginal bleeding after a Depo-Provera injection. Shortly after being placed on 25 mcg of levothyroxine her bleeding stopped. She has regular withdrawal bleeds on OCP. In the past she has been off of levothyroxine for as long as 6 months and at that time did feel more tired and not quite right. She still continues to have periods of time whereher energy is reduced. She also has intermittent nausea which is worse with prolonged fasting. Thereare no accompanying symptoms with the nausea. Her weight has remained relatively stable. She tends to have a good appetite in the morning. No skin hyperpigmentation. The nausea is not associated with certain foods. She does not have abdominal pain constipation or diarrhea. Only one episode of heartburn in her entire life. Her mother was recently diagnosed with an underactive thyroid at age 51. She has several cousins on her father's side with hypothyroidism. She also has an aunt with vitiligo. No other autoimmune disease. Nidia has a history of eczema, improved since starting levothyroxine 2 years ago. She is a non-smoker, works as a mixing plant operator aircraft technician in [employer]. She has 3 dogs and some goats. Recent labs: TSH over the past 1-2 years has ranged between 2-4. REVIEW OF SYSTEMS: as per HPI, all other systems reviewed and negative Allergies Allergen Reactions ??? Codeine Rash No current outpatient prescriptions on file prior to visit. No current facility-administered medications on file prior to visit. Social History Social History ??? Marital status: Single Spouse name: N/A ??? Number of children: N/A ??? Years of education: N/A Social History Main Topics ??? Smoking status: Never Smoker ??? Smokeless tobacco: Never Used ??? Alcohol use None ??? Drug use: None ??? Sexual activity: Not Asked Other Topics Concern ??? None Social History Narrative ??? None PHYSICAL EXAM: BP 138/73 Pulse 82 Ht 160 cm (5' 3) Wt 76.8 kg (169 lb 4.8 oz) BMI 29.99 kg/m2 GENERAL: Well nourished, well hydrated, in no distress. SKIN: normal in texture and temperature EYES: no thyroid eye signs, NOÉ, cornea normal NECK: supple, no palpable nodule or goiter (thyroid gland 15 g normal texture ) no tenderness, no lymphadenopathy CVS: S1 S2 heard, rhythm regular RS: clear breath sounds bilateral ABD: soft, BS heard, no organomegaly, Rosario sign is negative. EXTREMITIES: No clubbing, no edema, no cyanosis, normal nails. No tremor on out- stretched hands. Neuro: DTR 2+/4 at the knee Impression: 22-year-old female with a reported history of an underactive thyroid diagnosed in the setting of menorrhagia. She does have a somewhat strong family history of hypothyroidism so it would not surprise me if her antibody markers are positive. Given that she is on such a low dose of levothyroxine I did recommend checking a thyroid peroxidase antibody and thyroglobulin antibody. We spent time discussing that if she does have a diagnosis of hypothyroidism she would need a TSH prior to conception and at least twice during a . We also discussed her levothyroxine from her oral contraceptive in case there is iron in the OCP. We also discussed that we could consider a trial off of her a very low-dose levothyroxine if her antibodies are negative and if her TSH is entirely normal. However, if her symptoms of fatigue worsen or she feels better on 25 mcg I would not hesitate in restarting as there is little to no risk in this very low dose. There is a small proportion of patients or antibody negative and have hypothyroidism. She does not have any evidence on exam of hypothyroidism, that i s her thyroid gland is entirely normal. She is having mild intermittent nausea of unclear etiology. It would be quite uncommon to see this with a normal TSH or even in the setting of moderate hypothyroidism. Possible etiologies include gastroesophageal reflux, estrogen effect in her oral contraceptive, stress and much more rarely adrenal ins ufficiency. We can exclude adrenal insufficiency with a morning cortisol level today. Recommendations: Measure thyroid antibodies today (will include TSH and free T4) Morning cortisol Follow-up as needed We have reviewed our plan outlined above with the patient, and patient verbalized understanding. Allquestions were answered and most of the time was spent on counseling. Thank you for this consult, please do not hesitate to contact me with any questions. Shaan Burch DO, Stock Layerbusiness development specialist Department of Medicine Section of Endocrinology [facility] cc: Kathie Hannah APRN documented in this encounter Miscellaneous Notes Addendum Note - Jerry Georges - 10/18/2017 9:16 AM EDT Addended by: JERRY GEORGES on: 10/18/2017 09:16 AM Modules accepted: Orders documented in this encounter Plan of Treatment Not on filedocumented as of this encounter Procedures Procedure Name Priority Date/Time Associated Diagnosis Comme nts THYROGLOBULIN Routine 10/18/2017 9:36 Hypothyroidism due to Re sults for this ANTIBODY AM EDT Oscar's procedure are i n thyroiditis the results section. THYROID PEROXIDASE Routine 10/18/2017 9:36 Hypothyroidism due to Results for this ANTIBODY AM EDT Oscar's procedure are i n thyroiditis the results section. TSH Routine 10/18/2017 9:36 Hypothyroidism due to Res ults for this AM EDT Oscar's procedure are i n thyroiditis the results section. T4, FREE Routine 10/18/2017 9:36 Hypothyroidism due to Res ults for this AM EDT Oscar's procedure are i n thyroiditis the results section. CORTISOL Routine 10/18/2017 9:36 Chronic nausea Results fo r this AM EDT procedure are i n the results section. documented in this encounter Results Thyroglobulin Antibody (10/18/2017 9:36 AM EDT) athologist Signature Thyroglob Ab <20.0 0.0 - 40.0 [facility] IU/mL [facility] Specimen Anatomical Collection Method Collection Time Receive d Time (Source) Location / / Volume Laterality Blood specimen 10/18/2017 9:36 AM 018 1:47 (specimen) EDT PM EDT Resulting Agency Comment Spec In Lab Shaan Kiersten DO CHEMISTRY ORDERABLES Performing Organization Address City/[facility]/[place] [address] Thyroid peroxidase antibody (10/18/2017 9:36 AM EDT) athologist Signature Thyroperox Ab <10 <=34 IU/mL [facility] Specimen Anatomical Collection Method Collection Time Receive d Time (Source) Location / / Volume Laterality Blood specimen 10/18/2017 9:36 AM 018 1:47 (specimen) EDT PM EDT Resulting Agency Comment Spec In Lab Shaan Burch IMMUNOLOGY ORDERABLES Performing Organization Address City/[facility]/[place] [address] Cortisol (10/18/2017 9:36 AM EDT) athologist Signature Cortisol 19.2 mcg/dL [facility] Comment: Reference ranges: ??AM (6-10am): ??4.8-19.5 mcg/dL ??PM (4-8pm) : ??2.5-11.9 mcg/dL Specimen Anatomical Collection Method Collection Time Receive d Time (Source) Location / / Volume Laterality Blood specimen 10/18/2017 9:36 AM 018 9:42 (specimen) EDT AM EDT Resulting Agency Comment Spec In Lab Shaan Kiersten DO CHEMISTRY ORDERABLES Performing Organization Address City/[facility]/ZIP Code Phon e Number [address] T4, free (10/18/2017 9:36 AM EDT) athologist Signature Free T4 1.34 0.93 - 1.70 MAHAD EMERY ng/dL [facility] Specimen Anatomical Collection Method Collection Time Receive d Time (Source) Location / / Volume Laterality Blood specimen 10/18/2017 9:36 AM 018 9:42 (specimen) EDT AM EDT Resulting Agency Comment Spec In Lab Shaan Burch DO CHEMISTRY ORDERABLES Performing Organization Address City/[facility]/[place] [address] TSH (10/18/2017 9:36 AM EDT) athologist Signature TSH 4.11 0.27 - 4.20 MAHAD EMERY mlU/ML [facility] Specimen Anatomical Collection Method Collection Time Receive d Time (Source) Location / / Volume Laterality Blood specimen 10/18/2017 9:36 AM 018 9:42 (specimen) EDT AM EDT Resulting Agency Comment Spec In Lab Shaan Burch DO CHEMISTRY ORDERABLES Performing Organization Address City/[facility]/[place] [address] documented in this encounter Visit Diagnoses Diagnosis 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
--- OUTSIDE RECORDS SUMMARY | 2021-08-15 17:41 | XMS_ITS | Encounter Summary ---
:1995 Demographics Home Phone Preferred Language Unknown Marital Status Unknown Episcopalian Affiliation Unknown Race Unknown Ethnic Group Unknown Author Organization [facility] Address [address] [place] [address] Care Team Providers Name Role Phone Unavailable Primary Care Provider Unavailable Encounter Details Date Type Department Care Team Description 10/15/2019 Lab Requisition [facility] Outr Resulting Lab, Pathology & Laboratory Provider [facility] [address], [place] [address] Social History Tobacco Use Types Packs/Day Years Used Date Never Assessed Sex Assigned at Date Recorded Not on file documented as of this encounter Plan of Treatment Not on filedocumented as of this encounter Procedures Procedure Name Priority Date/Time Associated Diagnosis Comme nts COVID-19 TEST [facility] Today 10/15/2019 0:15 EDT LAB PCR COVID-19 TESTING Routine 10/15/2019 0:15 EDT Resu lts for this procedure are i n the results section. documented in this encounter Results COVID-19 TEST [facility] LAB PCR (10/15/2019 0:15 EDT) Specimen Swab - Entire nasopharynx (body structur e) Performing Organization Address City/State/ZIP Code Phon e Number [facility] [address] [place] [address] SERVICES COVID-19 TESTING (10/15/2019 0:15 EDT) COVID-19 rt-PCR Negative Negative [facility] Result Comment: CENTER LABORATORY This test has not been FDA c leared or approved. This test has been authorized by FDA under an EUA for use by authorized laboratories. This test has been authorized only for detection of nucleic acid fro SERVICES m 2019-nCoV, not for any oth er viruses or pathogens. This test is only authorized for the duration of the declaration that circumstances exist justifying the authorization of emergency use of in vitro d iagnostic tests for detectio n and/or diagnosis of 2019-nCoV under section 564(b)(1) of Act, 21 U.S.C ?? 360bbb-3(b) (1), unless the authorization is terminated or revoked sooner. Negative results do not prec lude 2019-nCoV infection and should not be used as the sole basis for treatment or other patient management decisions. Negative results must be combined with clinical observa tions, patient history, and epidemiological informatio n. Performed on the Organizerher Fusion instrument Performing Lab [place] Lab [facility] SERVICES Specimen Swab Performing Organization Address City/State/ZIP Code Phon e Number [facility] [address] [phone] SERVICES documented in this encounter Visit Diagnoses Not on filedocumented in this encounter
--- OUTSIDE RECORDS SUMMARY | 2021-08-15 17:41 | XMS_ITS | Encounter Summary ---
:1995 Demographics Home Phone Preferred Language Unknown Marital Status Unknown Holiness Affiliation Unknown Race Unknown Ethnic Group Unknown Author Organization [facility] Address [address] [place] [address] Care Team Providers Name Role Phone Unavailable Primary Care Provider Unavailable Encounter Details Date Type Department Care Team Description 09/16/2019 Lab Requisition [facility] Outr Resulting Lab, Pathology & Laboratory Provider [facility] [address] [place] [address] Social History Tobacco Use Types Packs/Day Years Used Date Never Assessed Sex Assigned at Date Recorded Not on file documented as of this encounter Plan of Treatment Not on filedocumented as of this encounter Procedures Procedure Name Priority Date/Time Associated Diagnosis Comme nts GROUP B STREP PCR Routine 09/16/2019 9:40 EDT Res ults for this procedure are i n the results section. documented in this encounter Results GROUP B STREP PCR (09/16/2019 9:40 EDT) Pathologist Sig nature Group B Strep PCR Negative Negative [facility] SERVICES Specimen Swab - Douche with rectal and vaginal fi ttings (physical object) Narrative [facility] SERVICES - 09/19/2019 9:51 EDT Testing preformed at [facility]. Performing Organization Address City/State/ZIP Code Phon e Number [facility] [address] [place] [address] SERVICES documented in this encounter Visit Diagnoses Not on filedocumented in this encounter
--- OUTSIDE RECORDS SUMMARY | 2021-08-15 17:41 | XMS_ITS | Encounter Summary ---
:1995 Demographics Home Phone Preferred Language Unknown Marital Status Unknown Voodoo Affiliation Unknown Race Unknown Ethnic Group Unknown Author Organization [facility] Address [address] [place] [address] Care Team Providers Name Role Phone Unavailable Primary Care Provider Unavailable Encounter Details Date Type Department Care Team Description 03/06/2019 Lab Requisition [facility] Unknown, Provider, Pathology & Laboratory [facility] [address] [place] [address] [place] [address] Social History Tobacco Use Types Packs/Day Years Used Date Never Assessed Sex Assigned at Date Recorded Not on file documented as of this encounter Plan of Treatment Not on filedocumented as of this encounter Procedures Procedure Name Priority Date/Time Associated Diagnosis Comme nts HOLD SST Routine 03/06/2019 17:53 Results for this EST procedure are i n the results section. HEPATITIS C AB W Routine 03/06/2019 10:05 Results for this REFLEX TO HCV RNA EST procedure are in BY PCR the results section. HEPATITIS B SURFACE Routine 03/06/2019 10:05 Resu lts for this ANTIGEN EST procedure are i n the results section. documented in this encounter Results HOLD SST (03/06/2019 17:53 EST) Pathologist Sig nature Hold Hold [facility] SERVICES Specimen Blood - Venous blood (substance) Performing Organization Address [facility] Phon e Number [facility] [address] [place] [address] SERVICES HEPATITIS B SURFACE ANTIGEN (03/06/2019 10:05 EST) Pathologist Sig nature Hep B Surface Ag Negative Negative [facility] SERVICES Specimen Blood - Venous blood (substance) Performing Organization Address [facility] Phon e Number [facility] [address] [place] [address] SERVICES HEPATITIS C AB W REFLEX TO HCV RNA BY PCR (03/06/2019 10:05 EST) Pathologist Sig nature Hep C Antibody Negative Negative [facility] OR[facility] SERVICES Specimen Blood - Venous blood (substance) Performing Organization Address [facility] Code Phon e Number [facility] [address] [place] [address] SERVICES documented in this encounter Visit Diagnoses Not on filedocumented in this encounter
--- OUTSIDE RECORDS SUMMARY | 2021-08-15 17:41 | XMS_ITS | Encounter Summary ---
:1995 Author Organization [facility] [place] [address] Care Team Providers Name Role Phone Kathie Hannah APRN Primary Care Provider [phone] Encounter Details Date Type Department Care Team Description 10/18/2017 Telephone Endocrinology at [facility] C Cyndi [place] [address] Social History Tobacco Use Types Packs/Day Years Used Date Never Smoker Smokeless Tobacco: Never Used Sex Assigned at Date Recorded Not on file documented as of this encounter Miscellaneous Notes Telephone Encounter - Cyndi Baron LPN - 10/19/2017 7:35 AM EDT Lab received and were forward to Dr Burch Telephone Encounter - Cyndi Baron LPN - 10/18/2017 1:48 PM EDT Images from the original note were not included. Nidia Blanton?? Female, 22 y.o., 1995 Weight: 76.8 kg (169 lb 4.8 oz) Home: Work: PCP: Kathie Hannah APRN myD-H: Active Next Appt: None ?? Message Received: Today ? Shaan Burch, DO Cyndi Baron LPN ? Can you please get any thyroid testing (labs) performed in the past 4 years [facility] at [facility] in [facility]. thanks ? Called [facility]. Message left on v/m for above labs to be faxed to [phone] brown/c to nurse. documented in this encounter Plan of Treatment Not on filedocumented as of this encounter Visit Diagnoses Not on filedocumented in this encounter Care Teams Banana Grader Relationship Specialty Start Date End Date Kathie Hannah APRN PCP - General Family Medicine 05/22/17 [address] [place] [address] documented as of this encounter
--- OUTSIDE RECORDS SUMMARY | 2021-08-15 17:41 | XMS_ITS | Encounter Summary ---
:1995 Demographics Home Phone Preferred Language Unknown Marital Status Unknown Yarsani Affiliation Unknown Race Unknown Ethnic Group Unknown Author Organization [facility] Address [address] [place] [address] Care Team Providers Name Role Phone Unavailable Primary Care Provider Unavailable Encounter Details Date Type Department Care Team Description 03/06/2019 Lab Requisition [facility] Unknown, Provider, Pathology & Laboratory [facility] [address] [place] [address] [place] [address] Social History Tobacco Use Types Packs/Day Years Used Date Never Assessed Sex Assigned at Date Recorded Not on file documented as of this encounter Plan of Treatment Not on filedocumented as of this encounter Procedures Procedure Name Priority Date/Time Associated Diagnosis Comme nts RUBELLA IGG Routine 03/06/2019 10:05 Results for this ANTIBODY EST procedure are i n the results section. VARICELLA IGG Routine 03/06/2019 10:05 Results fo r this ANTIBODY EST procedure are i n the results section. documented in this encounter Results VARICELLA IGG ANTIBODY (03/06/2019 10:05 EST) Varicella IgG Ab PositiveComment: See Note [facility] Presence of LABORATORY SERVICES detectable Varicella Zoster virus IgG antibodies. Specimen Blood - Venous blood (substance) Performing Organization Address [facility]/ZIP Code Phon e Number [facility] [address] [place] [address] SERVICES RUBELLA IGG ANTIBODY (03/06/2019 10:05 EST) Rubella IgG Ab PositiveComment: See Note [facility] Positive for IgG LABORATORY SERVICES antibodies to Rubella virus. Specimen Blood - Venous blood (substance) Performing Organization Address [facility]/ZIP Code Phon e Number [facility] [address] [place] [address] SERVICES documented in this encounter Visit Diagnoses Not on filedocumented in this encounter
--- OUTSIDE RECORDS SUMMARY | 2021-08-15 17:41 | XMS_ITS | Clinical Summary ---
:1995 Demographics Home Phone Preferred Language Unknown Marital Status Unknown Hindu Affiliation Unknown Race Unknown Ethnic Group Unknown Author Organization [facility] Address [address] [place] [address] Care Team Providers Name Role Phone Unavailable Primary Care Provider Unavailable Encounters Date Type Specialty Care Team Description 06/14/2021 Lab Requisition Clinical Laboratory Kamilah Solo Encou nter for general adult medical examination without abnormal findings; WEB DEVELOPMENT INTERN Encounter for s creening for malignant neoplasm of cervix; Encounter for g ynecological examination (general) (routine) without abnormal findings from Last 3 Months Social History Tobacco Use Types Packs/Day Years Used Date Never Assessed Sex Assigned at Date Recorded Not on file Plan of Treatment Health Maintenance Due Date Last Done Comments COVID-19 Vaccine (1) 2000 Hepatitis C Screen Completed 03/06/2019 Procedures Procedure Name Priority Date/Time Associated Diagnosis Comme nts PAP TEST Today 06/14/2021 10:30 Encounter for general Re sults for this EDT adult medical procedure are in examination without the resu lts abnormal finding s section. Encounter for screening for malignant neoplasm of cervix Encounter for gynecological examination (general) (routine) without abnormal findings HUMAN PAPILLOMAVIRUS Today 06/14/2021 10:30 Encounter for ge neral Results for this (HPV) DETECTION-HIGH EDT adult medical proced ure are in RISK TYPES examination without the resu lts abnormal finding s section. Encounter for screening for malignant neoplasm of cervix Encounter for gynecological examination (general) (routine) without abnormal findings CHLAMYDIA/N. Today 06/14/2021 10:30 Results for this GONORRHOEAE AMPLIFIED EDT proced ure are in RNA, THINPREP the results section. from Last 3 Months Results PAP TEST (06/14/2021 10:30 EDT) Specimens A. Cervix and/or [facility] Endocervix , ThinPrep CENTER Imaging System with LABORATORY Manual Evaluation SERVICES Specimen Adequacy Satisfactory for [facility] Evaluation - CENTER transformation zone LABORATORY component present SERVICES General Negative for [facility] Categorization intraepithelial CENTER lesion or malignancy LABORATORY SERVICES Attestation By the signature below, the attending physician certifies that they have personally conducted a gross and/or microscopic [facility] Electronically examination of the described specimens and rendered or confirmed the above diagnosis. CENTER signed by DAVE Rodriguez MD on SERVICES 06/23/2021 at 072 1 Clinical History See below [facility] SERVICES HPV The result for the Human Pap illomavirus (HPV) Detection-High Risk Types is Negative. No E6 or E7 mRNA is detected from HPV types 16,18,31,33,35,39,45,51,52,56,58,59,66, and 68 by cigarette stamper mediated [facility] amplification.Testing was pe rformed on specimen [id number] and was resulted on 06/23/2021 0720 EDT by VIKA, LAB INSTRUMENT RESULTS IN [facility] LABORATORY SERVICES Performing Lab [facility] LAB [facility] SERVICES Scanned Images [facility] SERVICES Specimen Pap Test - Cervix and/or Endocervix Performing Organization Address City/[facility]/ZIP Code Phon e Number [facility] [address] [place] [address] SERVICES CHLAMYDIA/N. GONORRHOEAE AMPLIFIED RNA, THINPREP (06/14/2021 10:30 EDT) Pathologist Sig nature Gonococcus Result Negative Negative [facility] SERVICES Chlamydia Result Negative Negative [facility] SERVICES Specimen Pap Test - Cervix and/or Endocervix Performing Organization Address City/State/ZIP Code Phon e Number [facility] [address] [place] [address] SERVICES HUMAN PAPILLOMAVIRUS (HPV) DETECTION-HIGH RISK TYPES (06/14/2021 10:30 EDT) Human Papillomavirus NegativeComment: No Negative [facility] (HPV) Detection-High E6 or E7 mRNA is CENTER LABORATOR Y Types detected from HPV SERVICES types 16,18,31,33,35,39,45 ,51,52,56,58,59,66, and 68 by cigarette stamper mediated amplification. Specimen Pap Test - Cervix and/or Endocervix Performing Organization Address City/State/ZIP Code Phon e Number [facility] [address] [place] [address] SERVICES from Last 3 Months
--- OUTSIDE RECORDS SUMMARY | 2021-08-15 17:41 | XMS_ITS | Encounter Summary ---
:1995 Demographics Home Phone Preferred Language Unknown Marital Status Unknown Yarsanism Affiliation Unknown Race Unknown Ethnic Group Unknown Author Organization [facility] Address [address] [place] [address] Care Team Providers Name Role Phone Unavailable Primary Care Provider Unavailable Encounter Details Date Type Department Care Team Description 06/14/2021 Lab Requisition [facility] Kamilah Solo Encoun ter for general adult medical examination without abnormal findings; Pathology & TEXTILES PRINTER Encounter for screening for malignant ne oplasm of cervix; Laboratory Medicine [address] for gynecological examination (general) (routine) without abnormal findings - [address] [id number] Social History Tobacco Use Types Packs/Day Years [...] are in RNA, THINPREP the results section. HUMAN PAPILLOMAVIRUS Today 06/14/2021 10:30 Encounter for ge neral Results for this (HPV) DETECTION-HIGH EDT adult medical proced ure are in RISK TYPES examination without the resu lts abnormal finding s section. Encounter for screening for malignant neoplasm of cervix Encounter for gynecological examination (general) (routine) without abnormal findings documented in this encounter Results HUMAN PAPILLOMAVIRUS (HPV) DETECTION-HIGH RISK TYPES (06/14/2021 10:30 EDT) Human Papillomavirus NegativeComment: No Negative [facility] (HPV) Detection-High E6 or E7 mRNA is CENTER LABORATOR Y Types detected from HPV SERVICES types 16,18,31,33,35,39,45 ,51,52,56,58,59,66, and 68 by respiratory assistant mediated amplification. Specimen Pap Test - Cervix and/or Endocervix Performing Organization Address City/[facility]/ZIP Code Phon e Number [facility] [address] [place] [address] SERVICES PAP TEST (06/14/2021 10:30 EDT) Specimens A. Cervix and/or [facility] Endocervix , ThinPrep CENTER Imaging System with LABORATORY Manual Evaluation SERVICES Specimen Adequacy Satisfactory for [facility] MEDICAL Evaluation - [place] transformation zone LABORATORY component present SERVICES General Negative for [facility] intraepithelial [place] lesion or malignancy LABORATORY SERVICES Attestation By the signature below, the attending physician certifies that they have personally conducted a gross and/or microscopic [facility] Electronically examination of the described specimens and rendered or confirmed the above diagnosis. CENTER signed by DAVE Rodriguez MD on SERVICES 06/23/2021 at 072 1 Clinical History See below [facility] SERVICES HPV The result for the Human Pap illomavirus (HPV) Detection-High Risk Types is Negative. No E6 or E7 mRNA is detected from HPV types 16,18,31,33,35,39,45,51,52,56,58,59,66, and 68 by respiratory assistant mediated [facility] amplification.Testing was pe rformed on specimen [id number] and was resulted on 06/23/2021 0720 EDT by VIKA, LAB INSTRUMENT RESULTS IN [facility] LABORATORY SERVICES Performing Lab [facility] LAB [facility] SERVICES Scanned Images [facility] SERVICES Specimen Pap Test - Cervix and/or Endocervix Performing Organization Address City/[facility]/ZIP Code Phon e Number [facility] [address] [place] [address] SERVICES CHLAMYDIA/N. GONORRHOEAE AMPLIFIED RNA, THINPREP (06/14/2021 10:30 EDT) Pathologist Sig nature Gonococcus Result Negative Negative [facility] SERVICES Chlamydia Result Negative Negative [facility] SERVICES Specimen Pap Test - Cervix and/or Endocervix Performing Organization Address City/[facility]/ZIP Code Phon e Number [facility] [address] [place] [address] SERVICES documented in this encounter Visit Diagnoses Diagnosis Encounter for general adult medical exam ination without abnormal findings Unspecified general medical examination Encounter for screening for malignant ne oplasm of cervix Screening for malignant neoplasm of the cervix Encounter for gynecological examination (general) (routine) without abnormal findings documented in this encounter
== END 2021-08-15 17:40 | disposition home or self-care (01) ==
LOC: NCHCN 17:39
PROVIDERS: PCP Internal Medicine; Visit Provider Nurse Practitioner Family
DX: E03.9 Hypothyroidism, unspecified (principal)
CPT/HCPCS: 80053; 84443

== ENCOUNTER 2022-11-17 09:51 | Outpatient (REF) | payer MEDICAID, SELFPAY ==
--- NOTE | 2022-11-17 08:45 | SKI_PTH ---
PATIENT: Nidia Moore LOC: [facility] U#:[id number] AGE/SX: 27/F ROOM: RE11/17/[address]: SUSAN King : 1995 BED: DIS: 11/17/2022 SPEC #: [id number] RECD: 11/17/22 13:14 STATUS: LAUREN REQ #: [id number] OLIVIA: 11/17/22 08:[address]: Henri Colon DEPT: Surgical Specimen RECD BY: Haleigh Boyce ENTERED: 11/17/22 13:15 SP TYPE: ANTONIA MATTHEWS DR: Kamilah Solo Tissues: 1 - SKIN BIOPSY(SHAVE/PUNCH) Procedures: SKIN LEVEL 4 Comments: [id number]
== END 2022-11-17 09:52 | disposition home or self-care (01) ==
LOC: LBN 09:51
PROVIDERS: PCP Nurse Practitioner Family; Visit Provider Physician Assistant
DX: D22.5 Melanocytic nevi of trunk (principal)
CPT/HCPCS: 88305

== ENCOUNTER 2023-04-24 18:47 | Outpatient (REF) | payer SELFPAY | END 2023-04-24 18:48 | disposition home or self-care (01) | LOC: NCHCN 18:47 | PROVIDERS: PCP Nurse Practitioner Family; Visit Provider Nurse Practitioner Family | DX: Z00.00 Encounter for general adult medical examination without abnormal findings (principal); Z11.59 Encounter for screening for other viral diseases | CPT/HCPCS: 87340 ==

== ENCOUNTER 2023-05-09 16:50 | Outpatient (CLI) | payer BC, SELFPAY ==
[2023-05-10 18:31] LABS: HBs Antibody, Quant 25.1 mIU/mL (See Note); Hepatitis B Surface Ab Positive (See Note)
== END 2023-05-09 16:51 | disposition home or self-care (01) ==
LOC: LBO 16:53
PROVIDERS: PCP Nurse Practitioner Family; Visit Provider Nurse Practitioner Family
DX: Z76.89 Persons encountering health services in other specified circumstances
CPT/HCPCS: 86706

== ENCOUNTER 2023-08-07 15:13 | Outpatient (REF) | payer BC, SELFPAY ==
--- OUTSIDE RECORDS SUMMARY | 2023-08-07 15:15 | XMS_ITS | Continuity of Care Document ---
Author Name Unknown Organization [facility] Ambulatory Clinics Address [address] [place] [address] Care Team Providers Care Forensic Specialist Name Role Phone SENTHIL MCKEON Primary Care Physician [phone] Encounter [facility] NBR [id number] Date(s): 06/18/23 - 06/18/23 [facility] Ambulatory [facility] [address] [place] [address]- Encounter Diagnosis Atypical nevi(Discharge Diagnosis) - 06/18/23 Skin exam, screening for cancer(Discharge Diagnosis) - 06/18/23 Encounter for screening for malignant neoplasm of skin(Final) - Melanocytic nevi, unspecified(Final) - Discharge Disposition: Home or Self Care Attending Physician: SUSAN King Assessment and Plan Extracted from: Title:ENT Office Visit Note Author:SUSAN Hayes Date:06/18/23 1.??Skin exam, screening for cancer??Z12.83 Skin cancer screening exam with??multiple nevi??and history of sun exposure.?? With??prior biopsies of the??area of the back showing no concern for atypia??I do not feel that further treatment of this area is warranted. ??We will??photo document and??assess??with regular skin checks and if there are any concerns consider??biopsy at that time.?? Area of the left upper buttocks skin??(examined with MA present Claudia??and patient's son??Tito)??with??some concern for possible mild atypia.?? Discussed consideration for shave excision today.?? She has declined??and will continue to observe the area??which overall given appearance I think is reasonable. ??She will return for any??concerning changes and otherwise recheck skin in 6 months. 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 Sex Physician Outpatient Note * SUSAN King: PERFORM SUSAN King: PERFORM, MODIFY SUSAN King: MODIFY Event Display: Office Clinic Note Physician Authored Date: [id number] YVONNE ROBIN :1995 Age:28 years Sex:Female Visit Date:06/18/2023 Primary Care Physician: SENTHIL MCKEON Chief Complaint established patient - skin check History of Present Illness Established patient in the office today for a skin check, and to re-evaluate a lesion from the right scapula that had been biopsied on 02/02/23 and patient believes the lesion has grown back. Resultscame back as a persistent (recurrent) junctional nevus, sections show a dermal scar with increased melanocytes. Patient would like full body check Review of Systems Fatigue?? Negative.?? Fever?? Negative.?? Weight Loss?? Negative.?? Snoring?? Negative.?? Hoarseness?? Negative.? Cough?? Negative.??Rashes?? Negative.?? Eczema?? Negative.?? Headaches?? Negative.?? Thyroid Problems?? Negative.? Environmental allergies?? Negative.?? Hay Fever?? Negative.?? Reflux?? Negative.?? Sleep apnea?? Negative.?? Physical Exam GENERAL APPEARANCE:??The patient is awake, alert, and oriented and in no acute distress, Appears nutritionally sound, Healthy in appearance, Voice is strong, with no stridor or stertor, Handling secretions without difficulty.?PSYCH:??affect normal, good eye contact, oriented to person, oriented to place, oriented to time.?NEURO:??CN's II-XII grossly intact, Gait is normal,?HEENT:??The patient is normocephalic with a normal facies?NECK:??There is no palpable lymphadenopathy.?HEART:??regular rate and rhythm.?LUNGS:??clear to auscultation bilaterally, no wheezes/rhonchi/rales.?SKIN:??Scattered multiple benign-appearing moles and nevi.?? Recurrence of melanotic changes at prior biopsy site in the back?following a shave with some hypertrophic scarring,??4 mm diameter??pigmented lesion of the left??upper buttock skin??with??good symmetry,??well-defined borders, not raised,??slight??two-tone color. ??Photodocumented. ?MUSCULOSKELETAL:??normal gait and station.?? Images 2023-06-18 10:47:44 2023-06-18 10:52:05 Assessment/Plan 1.??Skin exam, screening for cancer??Z12.83 Skin cancer screening exam with??multiple nevi??and history of sun exposure.?? With??prior biopsiesof the??area of the back showing no concern for atypia??I do not feel that further treatment of this area is warranted. ??We will??photo document and??assess??with regular skin checks and if there are any concerns consider??biopsy at that time.?? Area of the left upper buttocks skin??(examined withMA present Claudia??and patient's son??Tito)??with??some concern for possible mild atypia.?? Discussed consideration for shave excision today.?? She has declined??and will continue to observe the area??which overall given appearance I think is reasonable. ??She will return for any??concerning changes and otherwise recheck skin in 6 months. 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 Tobacco Never tobacco user Tobacco Use:. Electronically Signed on 06/18/23 11:10 AM SUSAN King Patient Care team information Care Team Personnel Name: SENTHIL MCKEON Position: No Access Member Role: Primary Care Physician Address: Address: [address] [address]- Care Team Related Persons Name: JONES ROBIN Address: [address] [id number] Name: ENZO ROBIN Address: [address] [id number]
[2023-08-07 15:19] LABS: TSH (W/Ref FT4) 1.83 uIU/mL (0.36-3.74)
== END 2023-08-07 15:14 | disposition home or self-care (01) ==
LOC: NCHCN 15:13
PROVIDERS: PCP Nurse Practitioner Family; Visit Provider Nurse Practitioner Family
DX: E03.9 Hypothyroidism, unspecified (principal)
CPT/HCPCS: 84443

== ENCOUNTER 2023-10-08 13:30 | Outpatient (RCR) | payer OTHER, SELFPAY ==
--- OUTSIDE RECORDS SUMMARY | 2023-10-08 13:31 | XMS_ITS | Referral Summary ---
Author Organization [facility] Address [address] [place] [address] Care Team Providers Care Leather Stripping Machine Operator Name Role Phone Kamilah Solo Primary Care Provider [phone] Unknown, Provider Unavailable [phone] Social History Tobacco Use Types Packs/Day Years Used Date Smoking Tobacco: Never Assessed Interpersonal Safety Answer Date Record ed Physically Hurt Never 01/13/2020 Verbally Threaten Not on file 01/13/2020 Sex and Gender Information Value Date Recorded Sex Assigned at Not on file Gender Identity Not on file Sexual Orientation Not on file Plan of Treatment Not on file Procedures Procedure Name Priority Date/Time Associated Diagnosis Comments HEPATITIS C AB W REFLEX TO HCV RNA BY PCR Routine 03/06/2019 10:05 EST from Last 3 Months or Most Recently Relevant to Health Maintenance Results * HEPATITIS C AB W REFLEX TO HCV RNA BY PCR (03/06/2019 10:05 EST) Hep C Antibody Negative Negative 03/07/2019 10:43 EST [facility] Blood VENOUS BLOOD / Unknown Non-Lab Collect / Unknown 03/06/2019 10:05 EST 03/06/2019 17:52 EST Provider Unknown CHEMISTRY & BLOOD GA S ORDERABLES [facility] [address] [place] [address] from Last 3 Months or Most Recently Relevant to Health Maintenance Care Teams Leather Stripping Machine Operator Relationship Specialty Start Date End Date Kamilah Solo FNP [address] [place] [phone] PCP - General Family Medicine - Primary Care 10/20/22 Unknown, Provider, [address] [place] [phone] 10/20/22
--- OUTSIDE RECORDS SUMMARY | 2023-10-08 13:31 | XMS_ITS | Encounter Summary ---
Author Organization [facility] Address [address] [place] [address] Care Team Providers Care Marine Underwriter Name Role Phone Kamilah Solo Primary Care Provider [phone] Unknown, Provider Unavailable Encounter Details Date Type Department Care Team (Late st Contact Info) Description 05/10/2023 Lab Requisition [facility] Pathology & Laboratory Medicine - [facility] [address] [place], [place] [id number] Outr Resulting Lab, Provider Social History Tobacco Use Types Packs/Day Years Used Date Smoking Tobacco: Never Assessed Interpersonal Safety Answer Date Record ed Physically Hurt Never 01/13/2020 Verbally Threaten Not on file 01/13/2020 Sex and Gender Information Value Date Recorded Sex Assigned at Not on file Gender Identity Not on file Sexual Orientation Not on file documented as of this encounter Plan of Treatment Not on file documented as of this encounter Procedures Procedure Name Priority Date/Time Associated Diagnosis Comments HEPATITIS B SURFACE ANTIBODY Routine 05/09/2023 16:00 EDT documented in this encounter Results * HEPATITIS B SURFACE ANTIBODY (05/09/2023 16:00 EDT) Hep B Surface Ab, Quantitative 25.1 See Note mIU/mL 05/10/2023 18:26 EDT [facility] Comment: Reference Range for Hep B Surface Ab, Quant: Positive: >= 10.0 mIU/mL Negative: ??< 10.0 mIU/mL Patient is presumed to be immune to infection with Hepatitis B Virus. Hep B Surface Ab, Qualitative Positive See Note 05/10/2023 18:26 EDT [facility] Comment: Reference Range for Hep B Surface Ab, Qual: Unvaccinated: ??Negative Vaccinated: ??Positive Blood VENOUS BLOOD / Unknown 05/09/2023 16:00 EDT 05/10/2023 16:38 EDT Provider Outr Resulting Lab CHEMISTRY & BLOOD GAS ORDERABLES [facility] [address] [place], [place] [id number] documented in this encounter Visit Diagnoses Not on filedocumented in this encounter Care Teams Marine Underwriter Relationship Specialty Start Date End Date Kamilah Solo FNP [address] [place] [phone] PCP - General Family Medicine - Primary Care 10/20/22 Unknown, Provider, [address] [place] [phone] 10/20/22 documented as of this encounter
--- OUTSIDE RECORDS SUMMARY | 2023-10-08 13:31 | XMS_ITS | Clinical Summary ---
Author Organization [facility] Address [address] [place] [address] Care Team Providers Care Envelope Folding Machine Adjuster Name Role Phone Kamilah Solo Primary Care Provider [phone] Unknown, Provider Unavailable Social History Tobacco Use Types Packs/Day Years Used Date Smoking Tobacco: Never Assessed Interpersonal Safety Answer Date Record ed Physically Hurt Never 01/13/2020 Verbally Threaten Not on file 01/13/2020 Sex and Gender Information Value Date Recorded Sex Assigned at Not on file Gender Identity Not on file Sexual Orientation Not on file Plan of Treatment Health Maintenance Due Date Last Done Comments Hepatitis B Vaccine (1 of 3 - 19+ 3-dose series) 03/29 COVID-19 Vaccine ( season) 2022 Hepatitis C Screen Completed 03/06/2019 Procedures Procedure Name Priority Date/Time Associated Diagnosis Comments HEPATITIS C AB W REFLEX TO HCV RNA BY PCR Routine 03/06/2019 10:05 EST from Last 3 Months or Most Recently Relevant to Health Maintenance Results * HEPATITIS C AB W REFLEX TO HCV RNA BY PCR (03/06/2019 10:05 EST) Hep C Antibody Negative Negative 03/07/2019 10:43 EST [facility] Blood VENOUS BLOOD / Unknown Non-Lab Collect / Unknown 03/06/2019 10:05 EST 03/06/2019 17:52 EST Provider Unknown CHEMISTRY & BLOOD GA S ORDERABLES [facility] [address] [place] [address] from Last 3 Months or Most Recently Relevant to Health Maintenance Care Teams Envelope Folding Machine Adjuster Relationship Specialty Start Date End Date Kamilah Solo FNP [address] [place] [phone] PCP - General Family Medicine - Primary Care 10/20/22 Unknown, Provider, [address] [place] [address] [place] [phone] 10/20/22
--- OUTSIDE RECORDS SUMMARY | 2023-10-08 13:31 | XMS_ITS | Continuity of Care Document ---
Author Organization [place] - [facility] Address [address] [place] [address] Assessment Encounter Date Assessment Date Assessment LastModified by Organization Details LastModified Time 07/31/2023 07/31/2023 Pain in the left upper quadrant with palpation at all times sharp with palpation. Pain is a dull pain with running. Pain is aggravated by lying on the left side. Pain with palpation 4/10 pain. Tried ibuprofen- did improve pain with running. Denies fever/chills/ myalgia. No change in pain with eating, no change in appetite. No N/V/D/C Pain is not plueuritc. No URI symptoms. No known trauma. 1 month Mainor is a 28yo F presenting with one month of dull and aching LUQ abdominal pain on palpation which is most noticeable when running. She denies any trauma to the area, recent illness, fevers, unusual bruising or bleeding or GI-related symptoms. Physical exam revealed LUQ point tenderness inferior to the costal margin and no splenomegaly. [email or web address] Not available 07/31/2023 13:33:27 Plan of Treatment Reminders Order Date Submit Date Provider Last Modified By Organization Details Last Modified Time Details Appointments Annual Wellness Exam 40 2024 09:00A M Not available Not available Not available Lab None recorded. Referral None recorded. Procedures None recorded. Surgeries None recorded. Imaging None recorded. Medication Orders None recorded. Patient TargetsNo targets recorded. Patient InstructionsNo instructions recorded. Reason for Referral None Reported. Problems Name Status Onset Date Resolution Date Notes Provider Name and Address Organization Details Recorded Time Hypothyroidis m Active 2012 Tony brewer [facility] 4 18:44:46 Pityriasis alba Active [address] [facility]11[facility] 4 18:45:25 General examination of patient Completed 201607/05/2023 06/14/2021 - Comments only - Senthildana Solo [employer] - Annual exam with pap smear completed at today's visit. Tetanus and COVID-19 vaccinations are up to date. Problem Code: Z00.8; Problem Code Type: ICD-10; [facility] 4 18:44:26 Heart murmur Active 2016 [facility] 4 18:44:32 Cough Completed 201708/31/2017 08/30/2017 - Comments only - Kathie Marjanjosue [facility] - - Although she still has a cough, it has improved a lot since her course of antibiotics. Discussed that it can take a couple of weeks for a cough to fully resolve after an illness. Her respiratory exam and overall symptomatic improvement are reassuring. Recommend watchful waiting for now - rest, hydration, hot tea with honey, mucinex if feeling congested. Declines refill of tessalon perles. F/u if cough not completely resolved in 1 wk from now, or for new/worsening symptoms sooner Problem Code: R05; Problem Code Type: ICD-10; Not Available [facility] 3 05:06:49 Periapical abscess Completed 201702/07/2018 01/24/2018 - Comments only - Kathie Hannah [facility] - - Suspect a dental abscess. Recommending penicillin VK 500 mg four times daily x 7 days. Rev'd s/e. She is agreeable. Rx sent to pharmacy. Discussed that depending on the underlying cause this may return after completion of abx so she should make appt with her dentist within the next week or so for further eval. She agrees. Problem Code: K04.7; Problem Code Type: ICD-10; Not Available [facility] 3 05:06:50 Otalgia of left ear Completed 201911/10/2019 Problem Code: H92.02; Problem Code Type: ICD-10; Not Available [facility] 3 05:06:50 Eczema Active 2020 Tony Kasper [facility] 4 18:44:06 Pain in right hand Active 2020 4th MCP joint Tonydana Kasper [facility] 4 18:45:06 Hemorrhoids Active 2021 Tony Kasper [facility] 4 18:44:54 Anxiety disorder Active 2021 Tonydana Kasper [facility] 4 18:43:45 Dizziness and giddiness Completed 202108/08/2023 MINE FANG [facility] [address], [place], [address] [facility] 4 06:00:46 Chest pain [facility] 2022 [facility] 4 18:43:53 Obesity Active 2022 [facility] 4 18:44:39 Exposure to Rabies virus Active 2022 [facility] 4 18:44:15 Foot pain Completed 201404/23/2020 Problem Code: M79.673; Problem Code Type: ICD-10; Not Available [facility] 3 05:06:55 Nutritional deficiency disorder Completed 201604/22/2020 Problem Code: E63.9; Problem Code Type: ICD-10; Not Available [facility] 3 05:06:56 Nonpurulent mastitis associated with Completed 202004/26/2021 Problem Code: O91.23; Problem Code Type: ICD-10; Not Available [facility] 3 05:06:56 Irregular periods Completed 201704/22/2020 Problem Code: N92.6; Problem Code Type: ICD-10; Not Available [facility] 3 05:06:57 Abnormal weight gain Completed 201604/23/2020 Problem Code: R63.5; Problem Code Type: ICD-10; Not Available [facility] 3 05:06:57 Headache Completed 201711/15/2022 Problem Code: R51; Problem Code Type: ICD-10; Not Available [facility] 3 05:06:57 Nausea Completed 201604/23/2020 Problem Code: R11.0; Problem Code Type: ICD-10; Not Available [facility] 3 05:07:00 Candidiasis Completed 202004/26/2021 Problem Code: B37.89; Problem Code Type: ICD-10; Not Available [facility] 3 05:07:02 Upper respiratory tract infection caused by Influenza A Completed 201804/22/2020 Problem Code: J09.x2; Problem Code Type: ICD-10; Not Available [facility] 3 05:07:02 Molluscum contagiosum infection Completed 201504/22/2020 Problem Code: B08.1; Problem Code Type: ICD-10; Not Available [facility] 3 05:07:04 Disorder of skin and/or subcutaneous tissue Completed 201604/23/2020 Problem Code: L98.9; Problem Code Type: ICD-10; Not Available [facility] 3 05:07:05 Pain Completed 201804/22/2020 Problem Code: R52; Problem Code Type: ICD-10; Not Available [facility] 3 05:07:05 Localized eruption of skin Completed 202108/02/2022 Problem Code: R21; Problem Code Type: ICD-10; Not Available [facility] 3 05:07:06 Fatigue Completed 201604/23/2020 Problem Code: R53.83; Problem Code Type: ICD-10; Not Available [facility] 3 05:07:06 Idiopathic stabbing headache Completed 201704/22/2020 Problem Code: G44.85; Problem Code Type: ICD-10; Not Available [facility] 3 05:07:07 Menorrhagia Completed 201204/22/2020 Not Available [facility] 3 05:07:07 Adult health examination Active 2023 FATMATA COSBY CMA null, [facility] 4 14:37:20 Abdominal pain Active 2023 MINE FANG [address], [facility] [id number] [place] [address] 4 19:01:38 Hepatitis B screening required Active 2023 MINE FANG [address], [facility] [id number] [place] [address] 4 10:25:15 Problem Notes None recorded. Medical Equipment None Reported. Allergies Allergen ID Allergen Name Allergen Category Reaction Reaction Severity Criticality Documentation Date Start Date Code Code System Note Provider Name and Address Organization Details Recorded Time 29536 codeine medicatio n rash Not available Not available 12/29/20222003 2670 RxNorm RASH Not Available [facility] 3 16:21:48 Medications Name Sig Start Date Stop Date Status Note LastModified by Organization Details LastModified Time Mirena 21 mcg/24 hr (up to 8 years) 52 mg intrauterin e device inserted 11/25/20192019 active Not Available Not Available Not Avai lable fluconazole 100 mg tablet Take 4 tablets on day 1 of therapy and then 2 tablets daily therafter . 10/21 completed Not Available Not Available Not Available naproxen 375 mg tablet 1 bid 05/09 completed Not Available Not Available Not Available Phenergan 12.5 mg tablet 1 TAB every six hours 07/14 completed Not Available Not Available Not Available triamcinolo ne acetonide 0.5 % topical cream Apply 1 a small amount to affected area twice a day 08/06 completed Not Available Not Available Not Available permethrin 5 % topical cream as directed to skin single dose Thoroughl y massage cream from head to soles of feet; leave on for 8 to 14 hours before removing (shower or bath) 10/18 completed Not Available Not Available Not Available penicillin V potassium 500 mg tablet Take 1 tablet four times daily 01/31 completed Not Available Not Available Not Available Tamiflu 75 mg capsule Take 1 capsule by mouth twice daily. 04/22 completed Not Available Not Available Not Available amitriptyli ne 50 mg tablet Take 1 by mouth at bedtime 09/07 completed Not Available Not Available Not Available triamcinolo ne acetonide 0.1 % topical cream Apply a small amount to affected area twice a day For no longer than 10- days at a time. 2023 active Not Available Not Available Not Avai lable levothyroxi ne 25 mcg tablet take 1 tablet by mouth once daily 2017 active Not Available Not Available Not Avai lable Tessalon Perles 100 mg capsule 1 capsule every 8 hours as needed for cough 08/30 completed Not Available Not Available Not Available terbinafine HCl 250 mg tablet 1 TAB QD 04/25 completed Not Available Not Available Not Available levothyroxi ne 50 mcg tablet TAKE ONE TABLET BY MOUTH EVERY DAY active Not Available Not Available No t Available erythromyci n 5 mg/gram (0.5 %) eye ointment active Not Available Not Available Not Available hydroxyzine HCl 25 mg tablet 1 tablet by mouth three times a day as needed for itching and anxiety 06/01 completed Not Available Not Available Not Available mupirocin 2 % topical ointment Apply 1 a small amount to affected area three times a day for 7 days. 10/17 completed Not Available Not Available Not Available doxycycline hyclate 100 mg tablet Take 1 tab by mouth twice daily 08/24 completed Not Available Not Available Not Available Bactrim DS 800 mg-160 mg tablet 1 TAB BID 03/17 completed Not Available Not Available Not Available garlic 07/30 completed Not Available Not Available Not Available Vitals Date Recorded Body height Body mass index (BMI) Body weight Body temperature Oxygen saturation Oxygen saturation in Arterial blood by Pulse oximetry Heart rate Systolic blood pressure Diastolic blood pressure Provider Name and Address Organization Details Last Updated DateTime 160.02 cm 32.5 kg/m2 61277.5 6 g 97.3 [degF] 98 % 98 % 77 /min 112 mm[Hg] 80 mm[Hg] Hyacinth Mccartney RN [facility] 11:30:50 Social History Question Answer Notes LastModified by Organizat ion Details LastModified Time Tobacco Smoking Status Never Smoker Hyacinth Mccartney RN [facility] 08/07/2023 11:02:42 What Was The Date Of Your Most Recent Tobacco Screening? 08/07/2023 [facility] not available 08/07/2023 [facility] 08/07/2023 On What Date Was Tobacco Cessation Counseling Provided? 08/07/2023 [facility] Information not available 08/07/2023 Do You Or Have You Ever Used Any Other Forms Of Tobacco Or Nicotine? No [facility] Information not available 08/07/2023 Sex: Female Functional Status None recorded. Mental Status None recorded. Family History Relationship Description Onset Age of this Age Resolved Age Notes Unspecified Relation Family history of acute medical disorder TIA Relative: 'Aunt'; Maternal Grandmother Family history of acute medical disorder TIA Notes:*Problem: Mother-HTN Medical History No medical history recorded. Gynecological HistoryNo gynecological history recorded. Obstetrics History GPAL:G 0 P 0 0 0 0 Immunizations Vaccine Type Date Status Provider Name and Address Organization Details Recorded Time Influenza, split virus, quadrivalent, PF 04/25/2023 completed MARIE PEREYRA, [facility] 04/25/2023 07:53:26 MMR 03/31/1996 completed Not Available [facility] 04:02:23 MMR 07/26/2000 completed Not Available [facility] 04:02:23 DTaP, unspecified formulation 1995 completed Not Available [facility] 12/29/2022 04:02:23 DTaP, unspecified formulation 1995 completed Not Available [facility] 12/29/2022 04:02:23 DTaP, unspecified formulation 07/24/1996 completed Not Available [facility] 12/29/2022 04:02:23 DTaP, unspecified formulation 07/26/2000 completed Not Available [facility] 12/29/2022 04:02:23 DTaP, unspecified formulation 1995 completed Not Available [facility] 12/29/2022 04:02:23 meningococcal ACWY, unspecified formulation 08/04/2013 completed Not Available [facility] 12/29/2022 04:02:23 Td (adult), 5 Lf tetanus toxoid, preservative free, adsorbed 11/08/2017 completed Not Available [facility] 12/29/2022 04:02:24 Tdap 09/30/2007 completed Not Available [facility] 04:02:24 HPV, unspecified formulation 05/01/2008 completed Not Available [facility] 12/29/2022 04:02:24 HPV, unspecified formulation 09/30/2007 completed Not Available [facility] 12/29/2022 04:02:24 HPV, unspecified formulation 12/02/2007 completed Not Available [facility] 12/29/2022 04:02:24 Influenza, split virus, quadrivalent, PF 12/16/2019 completed Not Available [facility] 12/29/2022 04:02:24 Influenza, split virus, quadrivalent, PF 01/03/2021 completed Not Available [facility] 12/29/2022 04:02:24 Hib, unspecified formulation 1995 completed Not Available [facility] 12/29/2022 04:02:24 Hib, unspecified formulation 1995 completed Not Available [facility] 12/29/2022 04:02:24 Hib, unspecified formulation 07/24/1996 completed Not Available [facility] 12/29/2022 04:02:24 Hib, unspecified formulation 1995 completed Not Available [facility] 12/29/2022 04:02:25 COVID-19, mRNA, LNP-S, PF, 100 mcg/0.5mL dose or 50 mcg/0.25mL dose 03/03/2021 completed Not Available [facility] 12/30/19 04:02:25 COVID-19, mRNA, LNP-S, PF, 100 mcg/0.5mL dose or 50 mcg/0.25mL dose 05/18/2020 completed Not Available [facility] 12/30/19 04:02:25 COVID-19, mRNA, LNP-S, PF, 100 mcg/0.5mL dose or 50 mcg/0.25mL dose 06/15/2020 completed Not Available [facility] 12/30/19 04:02:25 varicella 09/30/2007 completed Not Available [facility] 04:02:25 varicella 12/11/1996 completed Not Available [facility] 04:02:25 Hep B, unspecified formulation 07/24/1996 completed Not Available [facility] 12/29/2022 04:02:25 Hep B, unspecified formulation 1995 completed Not Available [facility] 12/29/2022 04:02:25 Hep B, unspecified formulation 1995 completed Not Available [facility] 12/29/2022 04:02:25 influenza, unspecified formulation 11/19/2012 completed Not Available [facility] 12/29/2022 04:02:26 polio, unspecified formulation 1995 completed Not Available [facility] 12/29/2022 04:02:26 polio, unspecified formulation 1995 completed Not Available [facility] 12/29/2022 04:02:26 polio, unspecified formulation 07/24/1996 completed Not Available [facility] 12/29/2022 04:02:26 polio, unspecified formulation 1995 completed Not Available [facility] 12/29/2022 04:02:26 Past Encounters Encounter ID Performer Location Encounter Start Date Encounter Closed Date Diagnosis/Indication Diagnosis SNOMED-CT Code [id number] MINE FANG [address] [address] 07/31/2023 11:22:16 07/31/2023 12:05:01 Abdominal pain 12761151 Health Concerns Section Related Observation LastModified by Organization Detai ls LastModified Time None Recorded Concern Status LastModified by Organization Details LastModified Time None Recorded Payers Encounter Date Sequence Insurance Name Policy Number Policy Espinosa Covered Member ID Espinosa Member ID Guarantor Name 07/31/2023 1 [facility]: [facility] [id number] Nidia Moore [id number] Nidia Moore Notes Date Note Type Note Provider Name and Address Organization Details Recorded Time 07/31/2023 text/html HPI Notes: Mainor briscoe s a 28yo F here for evaluation of LUQ pain for the past month. Reports that about a month ago she noticed pain while lying on her left side that has worsened over the past 2 weeks. She describes a dull, aching pain that is most noticeable and constant when running. Says that pain is about a 4/10 and sharper on palpation. She describes it as reminiscent of a side stitch that will not go away. Will also come on randomly at other times throughout the day but is always located in the same area with no radiation. She has taken ibuprofen before running and notes that it alleviates any pain during the run but pain on palpation persists. Has also iced the area which helped for a few days but the pain always returns. Denies any trauma to the area or any other illness in the past month. Currently running about 9 miles per day and has increased her mileage recently in preparation for a race. She has not recently been weight lifting.n The pain does not feel better or worse after eating. She says she has been doing well with regular hydration and drinks water during her runs. Drinks alcohol very occasionally, approx. 1 beer/month. She denies any fevers, chills, fatigue or body aches. No appetite changes, nausea, vomiting, diarrhea or constipation. No changes in stool frequency or blood in the stool. Denies pleuritic pain, pharyngitis, rhinorrhea and congestion. No unusual bruising or bleeding. SENTHIL SOLO, MINE [address], [place], [address], [facility]. 07/31/2023 19:01:54 OBGyn Episode No OBEpisode recorded.
--- OUTSIDE RECORDS SUMMARY | 2023-10-08 13:32 | XMS_ITS | Clinical Summary ---
Author Organization [facility] [place] [address] Care Team Providers Care Wire Spiral Binder Name Role Phone Edil Kamilah POLANCO Primary Care Provider [phone] Allergies Active Allergy Reactions Criticality Noted Date Comments Codeine Rash 10/18/2017 Medications Medication Sig Dispensed Refills Start Date End Date Status INTROVALE 0.15 mg-30 mcg , 91 tablet dose pack, 3 months take 1 tablet by mouth once daily 0 08/27/2017 Active levothyroxine (SYNTHROID) 25 mcg Tablet take 1 tablet by mouth once daily 0 08/27/2017 Active Active Problems No known active problems Encounters Date Type Department Care Team Description 10/05/2023 2:39 PM EDT - 10/05/2023 3:23 PM EDT Emergency Emergency Services at [address] [id number] Need for post exposure prophylaxis for rabies (Primary Dx) Discharge Disposition: Home 10/05/2023 Travel from Last 3 Months Immunizations Name Administration Dates Next Due Rabies Vaccine, IM Fibroblast 10/05/2023 Social History Tobacco Use Types Packs/Day Years Used Date Smoking Tobacco: Never Smokeless Tobacco: Never Alcohol Use Standard Drinks/Week Comments Yes 0 (1 standard drink = 0.6 oz pur e alcohol) Sex and Gender Information Value Date Recorded Sex Assigned at Not on file Gender Identity Not on file Sexual Orientation Not on file Last Filed Vital Signs Vital Sign Reading Time Taken Comments Blood Pressure 155/88 10/05/2023 2:43 PM EDT Pulse 79 10/05/2023 2:43 PM EDT Temperature 37.2 ??C (99 ??F) 10/05/2023 2:43 PM EDT Respiratory Rate 17 10/05/2023 2:43 PM EDT Oxygen Saturation 99% 10/05/2023 2:43 PM EDT Inhaled Oxygen Concentration - - Weight 80.3 kg (177 lb) 10/05/2023 2:43 PM EDT Height 160 cm (5' 3) 10/18/2017 8:09 AM EDT Body Mass Index 31.35 10/18/2017 8:09 AM EDT Plan of Treatment Health Maintenance Due Date Last Done Comments HIV screen 2013 Hepatitis C Screening 2013 Lipid Screening 2013 Hepatitis B vaccine (0-59 yrs) (1) 2014 Tdap adult 2014 Tetanus vaccine 2014 PAP Smear 2016 Covid-19 Vaccine ( - 2022- season) 2022 Influenza (Flu) vaccine (1 o f 1 - Influenza standard series) 10/21/2023 Care Teams Wire Spiral Binder Relationship Specialty Start Date End Date Kamilah Solo APRN [address] [place] [address] PCP - General Family Medicine 10/11/21
--- OUTSIDE RECORDS SUMMARY | 2023-10-08 13:32 | XMS_ITS | Encounter Summary ---
Author Organization [facility] Address [address] [place] [address] Care Team Providers Care Cable Operator Name Role Phone Unknown, Provider Primary Care Provider Kamilah Solo Primary Care Provider [phone] Unknown, Provider Unavailable [phone] Encounter Details Date Type Department Care Team (Late st Contact Info) Description 03/06/2019 Lab Requisition [facility] Pathology & Laboratory Medicine - [facility] [address] [place] [address] Unknown, Provider, Social History Tobacco Use Types Packs/Day Years Used Date Smoking Tobacco: Never Assessed Sex and Gender Information Value Date Recorded Sex Assigned at Not on file Gender Identity Not on file Sexual Orientation Not on file documented as of this encounter Plan of Treatment Not on file documented as of this encounter Procedures Procedure Name Priority Date/Time Associated Diagnosis Comments HIV 1/2 ANTIGEN AND ANTIBODY, 4TH GENERATION Routine 03/06/2019 10:05 EST documented in this encounter Results * HIV 1/2 ANTIGEN AND ANTIBODY, 4TH GENERATION (03/06/2019 10:05 EST) HIV 1 and 2 Antibody/p24 Antigen, 4th Generation Negative Negative 03/07/2019 10:45 EST [facility] Comment: If acute HIV-1 infection is suspected in a high risk ??patient, submit plasma specimen for HIV-1 RNA quantitation test. Fourth Generation assay performed on the Siemens EasyLinkaur. Blood VENOUS BLOOD / Unknown 03/06/2019 10:05 EST 03/06/2019 17:57 EST Provider Unknown IMMUNOLOGY AND DOTTIE CASTILLO ORDERABLES [facility] [address] [place] [address] documented in this encounter Visit Diagnoses Not on filedocumented in this encounter Care Teams Cable Operator Relationship Specialty Start Date End Date Unknown, Provider, PCP - General 05/16/16 10/19/22 Kamilah Solo FNP [address] [place] [id number] PCP - General Family Medicine - Primary Care 10/20/22 Unknown, ProviderMD 10/20/22 documented as of this encounter
--- OUTSIDE RECORDS SUMMARY | 2023-10-08 13:32 | XMS_ITS | Encounter Summary ---
Author Organization [facility] [place] [address] Care Team Providers Care Scheduling Assistant Name Role Phone Unavailable Primary Care Provider Unavailabl e Reason for Visit * Reason Comments Hypothyroidism * Consultation (Routine) - Closed Specialty Diagnoses / Procedures Referred By Maribel t Referred To Contact Endocrinology Diagnoses hypothyroidism, having bouts of not feeling well and being tired on meds Kathie Hannah APRN [address] [place] [address] [facility] Endocrinology [address] [place] [phone] Referral ID Status Reason Start Date Expiration Date V isits Requested Visits Authorized [id number] Closed Consult, Test & Treat Connection [facility] 05/25/2017 05/25/2018 1 1 Encounter Details Date Type Department Care Team (Latest Contact Info) Description 10/18/2017 8:00 AM EDT Office Visit [place] [phone] Shaan Burch [facility] [place] [address] 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 She also has intermittent nausea which is worse with prolonged fasting. There are no accompanying symptoms with the nausea. Her weight has remained relatively stable. She tends to have a good appetite in the morning. No skin hyperpigmentation. The nausea is not associatedwith certain foods. She does not have abdominal pain constipation or diarrhea. Only one episode of heartburn in her entire life. Her mother was recently diagnosed with an underactive thyroid at age 51. She has several cousins onher father's side with hypothyroidism. She also has an aunt with vitiligo. No other autoimmune disease. Nidia has a history of eczema, improved since starting levothyroxine 2 years ago. She is a non-smoker, works as a sap manager noc technician in [employer]. She has 3 dogs and some goats. [...] bilateral ABD: soft, BS heard, no organomegaly, Rosaroi sign is negative. EXTREMITIES: No clubbing, no edema, no cyanosis, normal nails. No tremor on out- stretched hands. Neuro: DTR 2+/4 at the knee Impression: 22-year-old female with a reported history of an underactive thyroid diagnosed in the setting of menorrhagia. She does have a somewhat strong family history of hypothyroidism so it would not surpriseme if her antibody markers are positive. Given that she is on such a low dose of levothyroxine I did recommend checking a thyroid peroxidase antibody and thyroglobulin antibody. We spent time discussing that if she does have a diagnosis of hypothyroidism she would need a TSH prior to conception andat least twice during a . We also discussed her levothyroxine from her oral contraceptive in case there is iron in the OCP. We also discussed that we could consider a trial off ofher a very low-dose levothyroxine if her antibodies [...] any evidence on exam of hypothyroidism, that is her thyroid gland is entirely normal. She is having mild intermittent nausea of unclear etiology. It would be quite uncommon to see this with a normal TSH or even in the setting of moderate hypothyroidism. Possible etiologies include gastroesophageal reflux, estrogen effect in her oral contraceptive, stress and much more rarely adrenal insufficiency. We can exclude adrenal insufficiency with a morning cortisol level today. Recommendations: Measure thyroid antibodies today (will include TSH and free T4) Morning cortisol Follow-up as needed We have reviewed our plan outlined above with the patient, and patient verbalized understanding. All questions were answered and most of the time was spent on counseling. Thank you for this consult, please do not hesitate to contact me with any questions. 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 Blood specimen (specimen) 10/18/2017 9:36 AM EDT 10/18/2017 1:47 PM EDT Narrative Resulting Agency Comment Spec In Lab Shaan Burch DO LAB SEND OUT ORDERAB LES Performing Organization Address [facility] Co de Phone Number [facility] [place] [address] * Thyroid peroxidase antibody (10/18/2017 9:36 AM EDT) Thyroperoxidase Ab <10 <=34 IU/mL [facility] Blood specimen (specimen) 10/18/2017 9:36 AM EDT 10/18/2017 1:47 PM EDT Narrative Resulting Agency Comment Spec In Lab Shaan Burch DO IMMUNOLOGY ORDERABLE S Performing Organization Address [facility] de Phone Number [facility] [place] [address] * Cortisol (10/18/2017 9:36 AM EDT) Cortisol 19.2 mcg/dL [facility] Comment: Reference ranges: ??AM (6-10am): ??4.8-19.5 mcg/dL ??PM (4-8pm) : ??2.5-11.9 mcg/dL Blood specimen (specimen) 10/18/2017 9:36 AM EDT 10/18/2017 9:42 AM EDT Narrative Resulting Agency Comment Spec In Lab Shaan Burch DO CHEMISTRY ORDERABLES Performing Organization Address [facility] Co de Phone Number [facility] [place] [address] * T4, free (10/18/2017 9:36 AM EDT) Free T4 1.34 0.93 - 1.70 ng/dL [facility] Blood specimen (specimen) 10/18/2017 9:36 AM EDT 10/18/2017 9:42 AM EDT Narrative Resulting Agency Comment Spec In Lab Shaan Burch DO CHEMISTRY ORDERABLES Performing Organization Address [facility] Co de Phone Number [facility] [place] [address] * TSH (10/18/2017 9:36 AM EDT) Thyroid Stimulating Hormone 4.11 0.27 - 4.20 mlU/ML [facility] Blood specimen (specimen) 10/18/2017 9:36 AM EDT 10/18/2017 9:42 AM EDT Narrative Resulting Agency Comment Spec In Lab Shaan Burch DO CHEMISTRY ORDERABLES Performing Organization Address [facility] Co de Phone Number 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
--- OUTSIDE RECORDS SUMMARY | 2023-10-08 13:32 | XMS_ITS | Encounter Summary ---
Author Organization [facility] Address [address] [place] [address] Care Team Providers Care Sales Department Manager Name Role Phone Unknown, Provider Primary Care Provider [phone] Encounter Details Date Type Department Care Team (Late st Contact Info) Description 05/20/2018 Results Only [facility] [phone] Jennifer Nuñez, [facility] [address] [place] [phone] Social History Tobacco Use Types Packs/Day Years Used Date Smoking Tobacco: Never Assessed Sex and Gender Information Value Date Recorded Sex Assigned at Not on file Gender Identity Not on file Sexual Orientation Not on file documented as of this encounter Plan of Treatment Not on file documented as of this encounter Procedures Procedure Name Priority Date/Time Associated Diagnosis Comments PAP TEST- RESULT ONLY Routine 05/20/2018 0:00 EDT documented in this encounter Results * PAP TEST- RESULT ONLY (05/20/2018 0:00 EDT) Pathology Report: CYTOPATHOLOGY REPORT Reports generated via electronic interface contain original data; however they are lacking the format of the original report. Caution should be taken when reading/interpreti ng unformatted reports. Name: ? YVONNE BLANTON ? Accession #: ? [id number] : ? 1995 (Age: 23) ??F ?Collect Date: ? 05/20/2018 Location: ? [facility] ? Receive Date: ? 05/21/2018 Provider: ?JENNIFER NUÑEZ KNIFEMAN Copy to: ? Specimen/Source: ?Pap Test, Cervix, ThinPrep Imaging System with manual evaluation Last Menstrual Period: ? 03/11/18 Hormonal/Contracep tive Status: ? Oral contraceptives ? SPECIMEN ADEQUACY ? Satisfactory for Evaluation - transformation zone component present GENERAL CATEGORIZATION ? Negative for Intraepithelial Lesion or Malignancy ? Document reviewed and electronically signed by: ? KIMBERLY Orozco(ASCP) ? Report Date: ??05/23/2018 08:12 End of Report [facility] 05/20/2018 05/21/2018 Jennifer Nuñez KNIFEMAN PATHOLOGY ORDERABLES Performing Organization Address City/State/[facility] Co de Phone Number [facility] [address] [place] [address] documented in this encounter Visit Diagnoses Not on filedocumented in this encounter Care Teams Sales Department Manager Relationship Specialty Start Date End Date Unknown, Provider, PCP - General 05/16/16 10/19/22 documented as of this encounter
--- OUTSIDE RECORDS SUMMARY | 2023-10-08 13:32 | XMS_ITS | Encounter Summary ---
Author Organization [facility] Address [address] [place] [address] Care Team Providers Care Gis Engineer Name Role Phone Unknown, Provider Primary Care Provider [phone] Kamilah Solo Primary Care Provider Unknown, Provider Unavailable Encounter Details Date Type Department Care Team (Latest Contact Info) Description 06/14/2021 Lab Requisition [facility] Pathology & Laboratory Medicine - [facility] [address] [place] [address] Kamilah Solo FNP [address] [facility] [address] [place] [phone] Encounter for general adult medical examination without abnormal findings; Encounter for screening for malignant neoplasm of cervix; Encounter for gynecological examination (general) (routine) without abnormal findings Social History Tobacco Use Types Packs/Day Years [...] Name Priority Date/Time Associated Diagnosis Comments PAP TEST Today 06/14/2021 10:30 EDT Encounter for general adult medical examination without abnormal findings Encounter for screening for malignant neoplasm of cervix Encounter for gynecological examination (general) (routine) without abnormal findings CHLAMYDIA/N. GONORRHOEAE AMPLIFIED NUCLEIC ACID, THINPREP Today 06/14/2021 10:30 EDT HPV DNA DETECTION WITH GENOTYPING, PCR Today 06/14/2021 10:30 EDT Encounter for general adult medical examination without abnormal findings Encounter for screening for malignant neoplasm of cervix Encounter for gynecological examination (general) (routine) without abnormal findings documented in this encounter Results * HUMAN PAPILLOMAVIRUS (HPV) DETECTION-HIGH RISK TYPES (06/14/2021 10:30 EDT) HPV other High Risk types, PCR Negative Negative 06/23/2021 7:21 EDT [facility] Comment:No E6 or E7 mRNA is detected from HPV types 16,18,31,33,35,39,45,51,52,56,58,59,66, and 68 by principal planner mediated amplification. Papanicolaou smear specimen (specimen) CERVIX UTERI STRUCTURE / Unknown 06/14/2021 10:30 EDT 06/20/2021 11:25 EDT Kamilah Solo GLUER MICROBIOLOGY - GENER AL ORDERABLES [facility] [address] [place] [address] * PAP TEST (06/14/2021 10:30 EDT) Specimens A. Cervix and/or Endocervix , ThinPrep Imaging System with Manual Evaluation 06/23/2021 7:21 T [facility] Specimen Adequacy Satisfactory for Evaluation - transformation zone component present 06/23/2021 7:21 T [facility] General Categorization Negative for intraepithelial lesion or malignancy 06/23/2021 7:21 [facility] Attestation By the signature below, the attending physician certifies that they have personally conducted a gross and/or microscopic examination of the described specimens and rendered or confirmed the above diagnosis. 06/23/2021 7:21 [facility] at 0721 Clinical History See below 06/24/19 7:21 EDT [facility] HPV The result for the Human Papillomavirus (HPV) Detection-High Risk Types is Negative. No E6 or E7 mRNA is detected from HPV types 16,18,31,33,35,39 ,45,51,52,56,58,5 9,66, and 68 by principal planner mediated amplification.Nelsy ting was performed on specimen [id number] and was resulted on 06/23/2021 0720 EDT by VIKA, LAB INSTRUMENT RESULTS IN 06/23/2021 7:21 EDT [facility] Performing Lab [facility] 06/23/2021 7:21 EDT [facility] Scanned Images 06/23/2021 7:21 EDT [facility] Papanicolaou smear specimen (specimen) CERVIX UTERI STRUCTURE / Unknown 06/14/2021 10:30 EDT 06/15/2021 11:54 EDT Kamilah BLOUNT PATHOLOGY ORDERABLES Performing Organization Address City/[facility]/ZIP Co de Phone Number [facility] [address] [place] [address] * CHLAMYDIA/N. GONORRHOEAE AMPLIFIED RNA, THINPREP (06/14/2021 10:30 EDT) Neisseria gonorrhoeae Result Negative Negative 06/15/2021 14:12 EDT [facility] Chlamydia trachomatis Result Negative Negative 06/15/2021 14:12 EDT [facility] Papanicolaou smear specimen (specimen) CERVIX UTERI STRUCTURE / Unknown 06/14/2021 10:30 EDT 06/15/2021 8:00 EDT Kamilah BLOUNT MICROBIOLOGY - GENER AL ORDERABLES [facility] [address] [place] [address] documented in this encounter Visit Diagnoses Diagnosis Encounter for general adult medical examination without abnormal findings Unspecified general medical examination Encounter for screening for malignant neoplasm of cervix Screening for malignant neoplasm of the cervix Encounter for gynecological examination (general) (routine) without abnormal findings documented in this encounter Care Teams Gis Engineer Relationship Specialty Start Date End Date Unknown, ProviderMD PCP - General 05/16/16 10/19/22 Kamilah Solo FNP [address] [phone] PCP - General Family Medicine - Primary Care 10/20/22 Unknown, Provider, 10/20/22 documented as of this encounter
--- OUTSIDE RECORDS SUMMARY | 2023-10-08 13:32 | XMS_ITS | Encounter Summary ---
Author Organization [facility] Address [address] [place] [address] Care Team Providers Care Logistics Coordinator Name Role Phone Unknown, Provider Primary Care Provider Kamilah Solo Primary Care Provider Unknown, Provider Unavailable Encounter Details Date Type Department Care Team (Late st Contact Info) Description 03/06/2019 Lab Requisition [facility] Pathology & Laboratory Medicine - [facility] [address] [place] [address] Unknown, Provider, Social History Tobacco Use Types Packs/Day Years Used Date Smoking Tobacco: Never Assessed Sex and Gender Information Value Date Recorded Sex Assigned at Not on file Gender Identity Not on file Sexual Orientation Not on file documented as of this encounter Plan of Treatment Not on file documented as of this encounter Procedures Procedure Name Priority Date/Time Associated Diagnosis Comments CHLAMYDIA/N. GONORRHOEAE AMPLIFIED NUCLEIC ACID Routine 03/06/2019 12:37 EST documented in this encounter Results * CHLAMYDIA/N. GONORRHOEAE AMPLIFIED RNA (03/06/2019 12:37 EST) Neisseria gonorrhoeae Result Negative Negative 03/07/2019 12:56 EST [facility] Chlamydia trachomatis Result Negative Negative 03/07/2019 12:56 EST [facility] Swab SPECIMEN FROM UTERINE CERVIX / Unknown 03/06/2019 12:37 EST 03/06/2019 22:17 EST Provider Unknown MICROBIOLOGY - GENER AL ORDERABLES [facility] [address] [place] [address] documented in this encounter Visit Diagnoses Not on filedocumented in this encounter Care Teams Logistics Coordinator Relationship Specialty Start Date End Date Unknown, Provider, PCP - General 05/16/16 10/19/22 Kamilah Solo FNP [address] [place] [phone] PCP - General Family Medicine - Primary Care 10/20/22 Unknown, Provider, 10/20/22 documented as of this encounter
--- OUTSIDE RECORDS SUMMARY | 2023-10-08 13:32 | XMS_ITS | Encounter Summary ---
Author Organization [facility] Address [address] [place] [address] Care Team Providers Care Dairy Technician Name Role Phone Kamilah Solo Primary Care Provider [phone] Unknown, Provider Unavailable [phone] Encounter Details Date Type Department Care Team (Late st Contact Info) Description 02/05/2023 Lab Requisition [facility] Pathology & Laboratory Medicine - [place] [address] [place], [place] [address] Henri Colon PA [address] [place] [address] [address] [place] [phone] Melanocytic nevi of unspecified lower limb, including hip Social History Tobacco Use Types Packs/Day Years [...] Procedure Name Priority Date/Time Associated Diagnosis Comments SURGICAL PATHOLOGY Today 02/02/2023 8: 45 EST Melanocytic nevi of unspecified lower limb, including hip documented in this encounter Results * SURGICAL PATHOLOGY (02/02/2023 8:45 EST) Note to Patient The following pathology results have been interpreted by your pathologist and may be available to you before your health provider has had the opportunity to review them. Please allow time for your provider to receive these results and explore management options, if applicable. 02/08/2023 17:22 [facility] Final Diagnosis A. SKIN OF UPPER BACK, RIGHT, SHAVE BIOPSY: - Persistent (recurrent) junctional nevus, not present at margin. (see comment) 02/08/2023 17:22 [facility] Diagnosis Comment Sections show a dermal scar, above which are individual melanocytes in increased number within a hyperpigmented epidermis. The changes do not extend beyond the lateral confines of the scar. 02/08/2023 17:22 [facility] Attestation By the signature below, the attending physician certifies that they have 1) personally conducted a gross and/or microscopic examination of the described specimen(s), and/or personally interpreted the results of laboratory testing of the described specimen(s), and 2) personally rendered or confirmed the above diagnosis. 02/08/2023 17:22 [facility] at 1722 Clinical History Re shave recurrent atypical nevus; clinical diagnosis code: D22.70 02/08/2023 17:22 [facility] Gross Description A. Received in formalin labelled with proper patient identification (initials D, S) and right upper back Re shave is a 1 x 1 cm hess irregular skin shave. The epidermis displays a 0.3 x 0.1 cm central brown irregular macule which is 0.3 cm from the closest peripheral margin. The specimen is inked, trisected and entirely submitted in A1. SUSAN SMITH(ASCP) 02/06/2023 8:40 02/08/2023 17:22 [facility] Performing Lab [facility] 02/08/2023 17:22 [facility] Scanned Images 02/08/2023 17:22 [facility] Tissue SPECIMEN FROM SKIN / Unknown 02/02/2023 8:45 EST 02/05/2023 19:57 EST Herni DAVIS PATHOLOGY ORDERABL ES [facility] [address] [place] [address] documented in this encounter Visit Diagnoses Diagnosis Melanocytic nevi of unspecified lower limb, including hip documented in this encounter Care Teams Dairy Technician Relationship Specialty Start Date End Date Kamilah Solo FNP [address] [facility] [address] [place] [phone] PCP - General Family Medicine - Primary Care 10/20/22 Unknown, Provider, [address] [place] [phone] 10/20/22 documented as of this encounter
--- OUTSIDE RECORDS SUMMARY | 2023-10-08 13:32 | XMS_ITS | Encounter Summary ---
Author Organization [facility] Address [address] [place] [address] Care Team Providers Care Supervising Nurse Name Role Phone Unknown, Provider Primary Care Provider [phone] Kamilah Solo Primary Care Provider [phone] Unknown, Provider Unavailable Encounter Details Date Type Department Care Team (Late st Contact Info) Description 10/15/2019 Lab Requisition [facility] Pathology & Laboratory Medicine - [facility] [address] [place], [place] [address] Outr Resulting Lab, Provider Social History Tobacco [...] Procedure Name Priority Date/Time Associated Diagnosis Comments ZZCOVID-19 TEST [facility] PCR Today 10/15/2019 0:15 EDT COVID-19 TESTING Routine 10/15/2019 0:15 EDT documented in this encounter Results * COVID-19 TEST [facility] PCR (10/15/2019 0:15 EDT) Swab ENTIRE NASOPHARYNX / Unknown 10/15/2019 0:15 EDT 10/15/2019 8:44 EDT Provider Outr Resulting Lab MICROBIOLOGY - GENERAL ORDERABLES Performing Organization Address City/State/[facility] Co de Phone Number [facility] [address] [place] [address] * COVID-19 TESTING (10/15/2019 0:15 EDT) COVID-19 rt-PCR Result Negative Negative 10/15/2019 12:47 EDT [facility] Comment: This test has not been FDA cleared or approved. This test has been authorized by FDA under an EUA for use by authorized laboratories. This test has been authorized only for detection of nucleic acid from 2019-nCoV, not for any other viruses or pathogens. This test is only authorized for the duration of the declaration that circumstances exist justifying the authorization of emergency use of in vitro diagnostic tests for detection and/or diagnosis of 2019-nCoV under section 564(b)(1) of Act, 21 U.S.C ?? 360bbb-3(b) (1), unless the authorization is terminated or revoked sooner. Negative results do not preclude 2019-nCoV infection and should not be used as the sole basis for treatment or other patient management decisions. Negative results must be combined with clinical observations, patient history, and epidemiological information. Performed on the [employer] [place] Fusion instrument Performing Lab [facility] Lab 10/15/2019 12:47 EDT [facility] Swab 10/15/2019 0:15 EDT 10/15/2019 8:44 EDT Provider Outr Resulting Lab MICROBIOLOGY - GENERAL ORDERABLES Performing Organization Address [facility] Co de Phone Number [facility] [address] [place] [address] documented in this encounter Visit Diagnoses Not on filedocumented in this encounter Care Teams Supervising Nurse Relationship Specialty Start Date End Date Unknown, Provider, PCP - General 05/16/16 10/19/22 Kamilah Solo FNP [address] [place] [address] [phone] PCP - General Family Medicine - Primary Care 10/20/22 Unknown, Provider, 10/20/22 documented as of this encounter
--- OUTSIDE RECORDS SUMMARY | 2023-10-08 13:32 | XMS_ITS | Encounter Summary ---
Author Organization [facility] Address [address] [place] [address] Care Team Providers Care Wet Washer Machine Name Role Phone Unknown, Provider Primary Care Provider [phone] Encounter Details Date Type Department Care Team (Late st Contact Info) Description 05/31/[address] [facility] [phone] Jennifer Nuñez, [facility] [address] [place] [address] [phone] Social History Tobacco Use Types Packs/Day Years [...] Diagnosis Comments PAP TEST- RESULT ONLY Routine 05/31/2017 0:00 EDT documented in this encounter Results * PAP TEST- RESULT ONLY (05/31/2017 0:00 EDT) Pathology Report: CYTOPATHOLOGY REPORT Reports generated via electronic interface contain original data; however they are lacking the format of the original report. Caution should be taken when reading/interpreti ng unformatted reports. Name: ? YVONNE BLANTON ? Accession #: ? [id number] : ? 1995 (Age: 22) ??F ?Collect Date: ? 05/31/2017 Location: ? [facility] ? Receive Date: ? 06/01/2017 Provider: ?JENNIFER NUÑEZ PATTERNMAKER METAL BENCH Copy to: ?AIME DUMONT MD ? Specimen/Source: ?Pap Test, Cervix, ThinPrep Imaging System with manual evaluation Last Menstrual Period: ? 05/14/17 Hormonal/Contracep tive Status: ? Oral contraceptives ? SPECIMEN ADEQUACY ? Satisfactory for Evaluation - transformation zone component present GENERAL CATEGORIZATION ? Negative for Intraepithelial Lesion or Malignancy ? Document reviewed and electronically signed by: ? KIMBERLY Medina(ASCP) ? Report Date: ??06/11/2017 13:14 End of Report [facility] 05/31/2017 06/01/2017 Jennifer Nuñez PATTERNMAKER METAL BENCH PATHOLOGY ORDERABLES [facility] [address] [place] [address] documented in this encounter Visit Diagnoses Not on filedocumented in this encounter Care Teams Wet Washer Machine Relationship Specialty Start Date End Date Unknown, Provider, PCP - General 05/16/16 10/19/22 documented as of this encounter
--- OUTSIDE RECORDS SUMMARY | 2023-10-08 13:32 | XMS_ITS | Encounter Summary ---
Author Organization [facility] Address [address] [place] [address] Care Team Providers Care Felt Washing Machine Tender Name Role Phone Unknown, Provider Primary Care Provider Kamilah Solo Primary Care Provider [phone] Unknown, Provider Unavailable [phone] Encounter Details Date Type Department Care Team (Late st Contact Info) Description 09/16/2019 Lab Requisition [facility] Pathology & Laboratory Medicine - [facility] [address] [place] [address] Outr Resulting Lab, Provider Social History Tobacco [...] Procedure Name Priority Date/Time Associated Diagnosis Comments GROUP B STREP PCR Routine 09/16/2019 9:40 EDT documented in this encounter Results * GROUP B STREP PCR (09/16/2019 9:40 EDT) Group B Strep PCR Negative Negative 09/19/2019 9:51 EDT [facility] Swab DOUCHE WITH RECTAL AND VAGINAL FITTINGS / Unknown Swab / Unknown 09/16/2019 9:40 EDT 09/17/2019 17:03 EDT Narrative [facility] - 09/19/2019 9:51 EDT Testing preformed at [facility]. Provider Outr Resulting Lab MICROBIOLOGY - GENERAL ORDERABLES [facility] [address] [place] [address] documented in this encounter Visit Diagnoses Not on filedocumented in this encounter Care Teams Felt Washing Machine Tender Relationship Specialty Start Date End Date Unknown, Provider, PCP - General 05/16/16 10/19/22 Kamilah Solo FNP [address] [place] [phone] PCP - General Family Medicine - Primary Care 10/20/22 Unknown, ProviderMD 10/20/22 documented as of this encounter
--- OUTSIDE RECORDS SUMMARY | 2023-10-08 13:32 | XMS_ITS | Encounter Summary ---
Author Organization [facility] Address [address] [place] [address] Care Team Providers Care Account Executive Sales Representative Name Role Phone Unknown, Provider Primary Care Provider [phone] Encounter Details Date Type Department Care Team (Late st Contact Info) Description 05/15/2016 Results Only [facility] [place] [phone] Jennifer Nuñez, [facility] [address] [place] [address] [phone] Social History Tobacco Use Types Packs/Day Years [...] Diagnosis Comments PAP TEST- RESULT ONLY Routine 05/15/2016 0:00 EDT documented in this encounter Results * PAP TEST- RESULT ONLY (05/15/2016 0:00 EDT) Pathology Report: CYTOPATHOLOGY REPORT Reports generated via electronic interface contain original data; however they are lacking the format of the original report. Caution should be taken when reading/interpreti ng unformatted reports. Name: ? YVONNE BLANTON ? Accession #: ? [id number] : ? 1995 (Age: 21) ??F ?Collect Date: ? 05/15/2016 Location: ? [facility] ? Receive Date: ? 05/16/2016 Provider: ?JENNIFER NUÑEZ DAIRY ASSOCIATE Copy to: ? Specimen/Source: ?Pap Test, Cervix, ThinPrep Imaging System with manual evaluation Last Menstrual Period: ? 03/30/2016 Hormonal/Contracep tive Status: ? Oral contraceptives Other: ? Additional clinical information: First pap ? SPECIMEN ADEQUACY ? Satisfactory for Evaluation - transformation zone component present GENERAL CATEGORIZATION ? Negative for Intraepithelial Lesion or Malignancy INTERPRETATION ? Fungal organisms present morphologically consistent with Genevieve species. ? Document reviewed and electronically signed by: ? KIMBERLY Medina(ASCP) ? Report Date: ??05/17/2016 16:12 End of Report [facility] 05/15/2016 05/16/2016 Jennifer Nuñez DAIRY ASSOCIATE PATHOLOGY ORDERABLES [facility] [address] [place] [address] documented in this encounter Visit Diagnoses Not on filedocumented in this encounter Care Teams Account Executive Sales Representative Relationship Specialty Start Date End Date Unknown, Provider, PCP - General 05/16/16 10/19/22 documented as of this encounter
--- OUTSIDE RECORDS SUMMARY | 2023-10-08 13:32 | XMS_ITS | Encounter Summary ---
Author Organization [facility] [place] [address] Care Team Providers Care Warehouse Receiving Clerk Name Role Phone Edil Kamilah POLANCO Primary Care Provider [phone] Reason for Visit * Reason Comments Other Possible rabies expo sure. Saliva on open wound from dog with signs of rabies. Encounter Details Date Type Department Care Team (Late st Contact Info) Description 10/05/2023 2:39 PM EDT - 10/05/2023 3:23 PM EDT Emergency Emergency Services at [address] [phone] Need for post exposure prophylaxis for rabies (Primary Dx) Discharge Disposition: Home Social History Tobacco Use Types Packs/Day Years [...] (177 lb) 10/05/2023 2:43 PM EDT Height - - Body Mass Index 31.35 10/18/2017 8:09 AM EDT documented in this encounter Discharge Instructions * Discharge Instructions* Rosette Mckinley APRN - 10/05/2023 3:04 PM EDT You were seen in the emergency department for possible exposure to rabies. Since you were previously fully immunized, you require 2 rabies boosters. You received the first vaccine today and you should present to your local emergency department or infectious disease clinic on Sunday for your next vaccine. Return to the emergency department for any new or concerning symptoms including fevers, chills, vomiting, or malaise. * Attachments The following attachments cannot be sent through Care Everywhere. * Rabies Vaccine: VIS (Irish) documented in this encounter Medications at Time of Discharge Medication Sig Dispensed Refills Start Date End Date levothyroxine (SYNTHROID) 25 mcg Tablet take 1 tablet by mouth once daily 0 08/27/2017 INTROVALE 0.15 mg-30 mcg , 91 tablet dose pack, 3 months take 1 tablet by mouth once daily 0 08/27/2017 documented as of this encounter ED Notes * Rosette Mckinley APRN - 10/05/2023 3:01 PM EDT ED Provider Note HPI: Nidia Moore is a 28 y.o. female who presents to the Emergency Department for possible rabiesexposure. 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 She received full rabies vaccination series 8 years ago. She is not immunocompromised. She is feeling well today and denies any fevers, chills, or malaise. ROS as per HPI Vitals: ED Triage Vitals [10/05/23 1443] BP: 155/88 Heart Rate: 79 Resp: 17 Temp: 37.2 ??C (99 ??F) Temp src: Oral SpO2: 99 % O2 Device: RA O2 Flow Rate (L/min): n/a Physical Exam Vitals and nursing note reviewed. Constitutional: General: She is not in acute distress. Appearance: Normal appearance. Cardiovascular: Rate and Rhythm: Normal rate and regular rhythm. Heart sounds: No murmur heard. No friction rub. No gallop. Pulmonary: Effort: Pulmonary effort is normal. No respiratory distress. Breath sounds: No wheezing or rales. Abdominal: General: Abdomen is flat. Bowel sounds are normal. Tenderness: There is no abdominal tenderness. Musculoskeletal: General: No swelling. Normal range of motion. Cervical back: Normal range of motion and neck supple. Skin: General: Skin is warm and dry. Comments: Scaley rash to palmar aspect of right hand Neurological: General: No focal deficit present. Mental Status: She is alert and oriented to person, place, and time. Psychiatric: Mood and Affect: Mood normal. Behavior: Behavior normal. ED Course: I have reviewed labs and imaging, images and available reports, and they are significant for: No orders to display Procedures Assessment and Plan: 28 y.o. female presents to the emergency department for rabies postexposure prophylaxis. Today she was exposed to the saliva of a dog that was presumed to have rabies. She was fully immunized 8 yearsago. She is not immune compromised. She is feeling well. Her physical exam is benign. We discussed indications, risks, and benefits for rabies prophylaxis and she wishes to process with immunizations. Since she has been previously immunized, she will only require a two-series booster. She wishes toreceive her second rabies vaccine closer to home in [facility]. She will schedule an appointment for Sunday. She verbalizes understanding of discharge instructions and return precautions for new or worsening symptoms including fevers, chills, malaise, or vomiting. Did this case involve critical care? No The visit findings, diagnosis, and care plan were discussed with the patient. The diagnosis and care plans discussions were outlined in the discharge instructions. The patient expressed understanding of the details of the visit, the return precautions and that she should return to the ER at any time for worsening symptoms, new symptoms, or other concerns. she agrees with thefollow- up plan. Rosette Mckinley APRN 10/06/23 2149 documented in this encounter Miscellaneous Notes * ED Triage - Virginia Alvarenga RN - 10/05/2023 2:44 PM EDT Pt presents to the ED for c/o rabies exposure. Reports treating a dog at work with signs of rabies.States saliva on open wound of right hand. 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 Possible rabies exposure at work. History Obtained From: patient Duration (Hours): 6 Medications/Treatments Prior to Arrival: none documented in this encounter Plan of Treatment Not on file documented as of this encounter Visit Diagnoses Diagnosis Need for post exposure prophylaxis for rabies- Primary Contact with or exposure to rabies documented in this encounter Care Teams Warehouse Receiving Clerk Relationship Specialty Start Date End Date Kamilah Solo APRN [address] [place] [address] PCP - General Family Medicine 10/11/21 documented as of this encounter
--- OUTSIDE RECORDS SUMMARY | 2023-10-08 13:32 | XMS_ITS | Encounter Summary ---
[place] [address] Care Team Providers Care Licensed Clinical Social Worker Name Role Phone Unavailable Primary Care Provider Unavailabl e Encounter Details Date Type Department Care Team (Late st Contact Info) Description 10/18/2017 [place] [phone] Cyndi Baron LPN Social History Tobacco Use Types Packs/Day Years Used Date Smoking Tobacco: Never Smokeless Tobacco: Never Sex and Gender Information Value Date Recorded Sex Assigned at Not on file Gender Identity Not on file Sexual Orientation Not on file documented as of this encounter Miscellaneous Notes * Telephone Encounter - Cyndi Baron LPN - 10/19/2017 7:35 AM EDT Lab received and were forward to Dr Burch * Telephone Encounter - Cyndi Baron LPN - 10/18/2017 1:48 PM EDT Images from the original note were not included. Nidia Blanton?? Female, 22 y.o., 1995 Weight: 76.8 kg (169 lb 4.8 oz) Home: Work: PCP: Kathie Hannah APRN myD-H: Active Next Appt: None ?? Message Received: Today ? Shaan Burch, Cyndi Reich LPN ? Can you please get any thyroid testing (labs) performed in the past 4 years from [facility] in [facility]. thanks ? Called [facility]. Message left on v/m for above labs to be faxed to [phone] or r/c to nurse. documented in this encounter Plan of Treatment Not on file documented as of this encounter Visit Diagnoses Not on filedocumented in this encounter
--- OUTSIDE RECORDS SUMMARY | 2023-10-08 13:32 | XMS_ITS | Encounter Summary ---
Author Organization [facility] Address [address] [place] [address] Care Team Providers Care Behavioral Health Counselor Name Role Phone Kamilah Solo Primary Care Provider [phone] Unknown, Provider Unavailable [phone] Encounter Details Date Type Department Care Team (Late st Contact Info) Description 11/17/2022 Lab Requisition [facility] Pathology & Laboratory Medicine - [facility] [address] [place], [place] [address] Henri Colon PA [address] [place] [address] [address] [place] [phone] Melanocytic nevi, unspecified Social History Tobacco Use Types Packs/Day Years [...] Date/Time Associated Diagnosis Comments SURGICAL PATHOLOGY Today 11/17/2022 8: 45 EDT Melanocytic nevi, unspecified documented in this encounter Results * SURGICAL PATHOLOGY (11/17/2022 8:45 EDT) Note to Patient The following pathology results have been interpreted by your pathologist and may be available to you before your health provider has had the opportunity to review them. Please allow time for your provider to receive these results and explore management options, if applicable. 11/20/2022 10:04 [facility] Final Diagnosis A. SKIN OF BACK, RIGHT UPPER, SHAVE BIOPSY: - Melanocytic nevus, compound type, with unusual architectural features and mild cytologic atypia, focally involving the biopsy base. 11/20/2022 10:04 [facility] Attestation There was significant resident/fellow involvement in the diagnostic evaluation of this case. By the signature below, the attending physician certifies that they have personally conducted a gross and/or microscopic examination of the described specimens and rendered or confirmed the above diagnosis. 11/20/2022 10:04 [facility] at 1004 Clinical History Atypical nevus; clinical diagnosis code: D22.9 11/20/2022 10:04 [facility] Gross Description A. Received in formalin labelled with proper patient identification (initials D, S) and right upper back is a shave biopsy of hess skin skin (0.7 x 0.7 x 0.1 cm). There is a central hess-brown mottled macule with irregular borders that measures 0.5 x 0.4 cm. Trisected and submitted in A1. Andriy Joseph MD 11/18/2022 11:18 11/20/2022 10:04 [facility] Resident/Rafael w: Andryi Joseph MD 11/20/2022 10:04 [facility] Performing Lab [facility] 11/20/2022 10:04 [facility] Scanned Images 11/20/2022 10:04 [facility] Tissue SPECIMEN FROM SKIN / Unknown 11/17/2022 8:45 EDT 11/17/2022 23:42 EDT Henri DAVIS PATHOLOGY ORDERABL ES [facility] [address] [place] [address] documented in this encounter Visit Diagnoses Diagnosis Melanocytic nevi, unspecified documented in this encounter Care Teams Behavioral Health Counselor Relationship Specialty Start Date End Date Kamilah Solo FNP [address] [phone] PCP - General Family Medicine - Primary Care 10/20/22 Unknown, Provider, [address] [phone] 10/20/22 documented as of this encounter
--- OUTSIDE RECORDS SUMMARY | 2023-10-08 13:32 | XMS_ITS | Encounter Summary ---
[place] [address] Care Team Providers Care Shirt Closer Name Role Phone Kamilah Solo APRN Primary Care Provider [phone] Encounter Details Date Type Department Care Team (Latest Contact Info) Description 10/05/2023 Travel Social History Tobacco Use Types Packs/Day Years [...] on filedocumented in this encounter Care Teams Shirt Closer Relationship Specialty Start Date End Date Kamilah Solo APRN [address] [place] [address] PCP - General Family Medicine 10/11/21 documented as of this encounter
--- OUTSIDE RECORDS SUMMARY | 2023-10-08 13:32 | XMS_ITS | Encounter Summary ---
Author Organization [facility] Address [address] [place] [address] Care Team Providers Care Clutch Operator Name Role Phone Unknown, Provider Primary Care Provider Kamilah Solo Primary Care Provider [phone] Unknown, Provider Unavailable [phone] Encounter Details Date Type Department Care Team (Late st Contact Info) Description 03/06/2019 Lab Requisition [facility] Pathology & Laboratory Medicine - [facility] [address] [place] [address] Unknown, Provider, Social History Tobacco Use Types Packs/Day Years Used Date Smoking Tobacco: Never Assessed Sex and Gender Information Value Date Recorded Sex Assigned at Not on file Gender Identity Not on file Sexual Orientation Not on file documented as of this encounter Plan of Treatment Not on file documented as of this encounter Procedures Procedure Name Priority Date/Time Associated Diagnosis Comments RUBELLA IGG ANTIBODY Routine 03/06/2019 10:05 EST VARICELLA IGG ANTIBODY Routine 03/06/2019 10:05 EST documented in this encounter Results * VARICELLA IGG ANTIBODY (03/06/2019 10:05 EST) Varicella IgG Ab Positive See Note 03/07/2019 11:[address] [facility] Comment:Presence of detectab le Varicella Zoster virus IgG antibodies. Blood VENOUS BLOOD / Unknown 03/06/2019 10:05 EST 03/06/2019 17:56 EST Provider Unknown IMMUNOLOGY AND SEROL OGY ORDERABLES Performing Organization Address City/[facility]/ZIP Co de Phone Number [facility] [address] [place] [address] * RUBELLA IGG ANTIBODY (03/06/2019 10:05 EST) Rubella IgG Ab Positive See Note 03/07/2019 14:[address] [facility] Comment:Positive for IgG ant ibodies to Rubella virus. Blood VENOUS BLOOD / Unknown 03/06/2019 10:05 EST 03/06/2019 17:56 EST Provider Unknown CHEMISTRY & BLOOD GA S ORDERABLES Performing Organization Address City/[facility] Co de Phone Number [facility] [address] [place] [address] documented in this encounter Visit Diagnoses Not on filedocumented in this encounter Care Teams Clutch Operator Relationship Specialty Start Date End Date Unknown, ProviderMD PCP - General 05/16/16 10/19/22 Kamilah Solo FNP [address] [place] [phone] PCP - General Family Medicine - Primary Care 10/20/22 Unknown, ProviderMD 10/20/22 documented as of this encounter
--- OUTSIDE RECORDS SUMMARY | 2023-10-08 13:32 | XMS_ITS | Encounter Summary ---
Author Organization [facility] Address [address] [place] [address] Care Team Providers Care Tank Cleaning Supervisor Name Role Phone Unknown, Provider Primary Care Provider Kamilah Solo Primary Care Provider Unknown, Provider Unavailable Encounter Details Date Type Department Care Team (Late st Contact Info) Description 03/06/2019 Lab Requisition [facility] Pathology & Laboratory Medicine - [facility] [address] [place] [address] Unknown, Provider, Social History Tobacco Use Types Packs/Day Years Used Date Smoking Tobacco: Never Assessed Sex and Gender Information Value Date Recorded Sex Assigned at Not on file Gender Identity Not on file Sexual Orientation Not on file documented as of this encounter Plan of Treatment Not on file documented as of this encounter Procedures Procedure Name Priority Date/Time Associated Diagnosis Comments HOLD SST Routine 03/06/2019 17:53 EST HEPATITIS C AB W REFLEX TO HCV RNA BY PCR Routine 03/06/2019 10:05 EST HEPATITIS B SURFACE ANTIGEN Routine 03/06/2019 10:05 EST documented in this encounter Results * HOLD SST (03/06/2019 17:53 EST) Hold Hold 03/06/2019 19:00 EST [facility] Blood VENOUS BLOOD / Unknown 03/06/2019 17:53 EST 03/06/2019 17:53 EST Provider Unknown LAB INFO SERVICE AND SUPPORT & PHONE RESULT [facility] [address] [place] [address] * HEPATITIS B SURFACE ANTIGEN (03/06/2019 10:05 EST) Hep B Surface Ag Negative Negative 03/07/2019 9:13 EST [facility] Blood VENOUS BLOOD / Unknown 03/06/2019 10:05 EST 03/06/2019 17:57 EST Provider Unknown CHEMISTRY & BLOOD GA S ORDERABLES Performing Organization Address City/[facility]/ZIP Co de Phone Number [facility] [address] [place] [address] * HEPATITIS C AB W REFLEX TO HCV RNA BY PCR (03/06/2019 10:05 EST) Hep C Antibody Negative Negative 03/07/2019 10:43 EST [facility] Blood VENOUS BLOOD / Unknown Non-Lab Collect / Unknown 03/06/2019 10:05 EST 03/06/2019 17:52 EST Provider Unknown CHEMISTRY & BLOOD GA S ORDERABLES Performing Organization Address City/[facility]/ZIP Co de Phone Number [facility] [address] [place] [address] documented in this encounter Visit Diagnoses Not on filedocumented in this encounter Care Teams Tank Cleaning Supervisor Relationship Specialty Start Date End Date Unknown, Provider, PCP - General 05/16/16 10/19/22 Kamilah Solo FNP [address] [place] [phone] PCP - General Family Medicine - Primary Care 10/20/22 Unknown, ProviderMD 10/20/22 documented as of this encounter
--- OUTSIDE RECORDS SUMMARY | 2023-10-08 13:32 | XMS_ITS | Encounter Summary ---
Author Organization [facility] [place] [address] Care Team Providers Care Graduate Teaching Associate Name Role Phone Kamilah Solo APRN Primary Care Provider [phone] Reason for Referral * Consultation (Routine) - Closed Specialty Diagnoses / Procedures Referred By Contac t Referred To Contact Dermatology Diagnoses Rash Kamilah Solo APRN [address] [place] [address] [facility] Dermatology [address] [place] [address] Referral ID Status Reason Start Date Expiration Date V isits Requested Visits Authorized [id number] Closed Consult, Test & Treat PCP Updated and/or Approved 10/11/2021 10/11/2022 12 12 Encounter Details Date Type Department Care Team (Late st Contact Info) Description 10/11/2021 Transcribe Orders eDH Incoming Referrals [phone] Kamilah Solo APRN [address] [place] [address] Rash Social History Tobacco Use Types Packs/Day Years Used Date Smoking Tobacco: Never Assessed Sex and Gender Information Value Date Recorded Sex Assigned at Not on file Gender Identity Not on file Sexual Orientation Not on file documented as of this encounter Plan of Treatment Scheduled Referrals Name Type Priority Associated Diagnoses Order Schedule Referral to Dermatology Outpatient Referral Routine Rash Ordered: 10/11/2021 documented as of this encounter Visit Diagnoses Diagnosis Rash Rash and other nonspecific skin eruption documented in this encounter Care Teams Graduate Teaching Associate Relationship Specialty Start Date End Date Kamilah Solo APRN [address] [place] [address] PCP - General Family Medicine 10/11/21 documented as of this encounter
--- OUTSIDE RECORDS SUMMARY | 2023-10-08 13:32 | XMS_ITS | Encounter Summary ---
Author Organization [facility] Address [address] [place] [address] Care Team Providers Care Air Hammer Operator Name Role Phone Kamilah Solo Primary Care Provider [phone] Unknown, Provider Unavailable [phone] Encounter Details Date Type Department Care Team (Late st Contact Info) Description 04/25/2023 Lab Requisition [facility] Pathology & Laboratory Medicine - [facility] [address], [place] [address] Outr Resulting Lab, Provider Social History Tobacco [...] Date/Time Associated Diagnosis Comments HEPATITIS B SURFACE ANTIGEN Routine 04/24/2023 14:20 EST documented in this encounter Results * HEPATITIS B SURFACE ANTIGEN (04/24/2023 14:20 EST) Hep B Surface Ag Negative Negative 04/25/2023 17:41 EST [facility] Blood VENOUS BLOOD / Unknown 04/24/2023 14:20 EST 04/25/2023 16:42 EST Provider Outr Resulting Lab CHEMISTRY & BLOOD GAS ORDERABLES [facility] [address] [place], [place] [id number] documented in this encounter Visit Diagnoses Not on filedocumented in this encounter Care Teams Air Hammer Operator Relationship Specialty Start Date End Date Kamilah Solo FNP [address] [place] [phone] PCP - General Family Medicine - Primary Care 10/20/22 Unknown, Provider, [address] [place] [address] 10/20/22 documented as of this encounter
[2023-10-08] MEDS: Rabies vaccine (PCEC)/PF 2.5 UNITS/ML VIAL IM (14:36)
== END 2023-10-20 23:59 | disposition home or self-care (01) ==
LOC: INF 13:30
PROVIDERS: PCP Nurse Practitioner Family; Visit Provider Family Medicine
DX: Z20.3 Contact with and (suspected) exposure to rabies (principal)
CPT/HCPCS: 96372; 90675

== ENCOUNTER 2024-03-19 02:41 | Outpatient (CLI) | payer OTHER, BC, SELFPAY ==
--- NOTE | 2024-03-19 14:35 | DI.MRI_ITS ---
Exam(s) MR LOWER JOINT RT WO EXAM: MR LOWER JOINT RT WO CLINICAL HISTORY: M25.551 Pain in Right hip joint TECHNIQUE: Multiplanar multisequence MRI of the hip was performed. COMPARISON: No exams were available for comparison FINDINGS: MARROW:There is no evidence of stress fracture, bone contusion, nor avascular necrosis. There are no significant osseous lesions.There is no significant osseous excrescence at the femoral head-neck ravindra ction to suggest the presence of cam-type WILBERTO. EFFUSION: There is minimal amount of increased fluid in the hip joint but no prominent hip joint effu ayla. No loose intra-articular bodies evident within the hip joint space. BURSAE: There is no evidence of trochanteric bursitis. There is no evidence of iliopsoas bursitis. HIP JOINT SPACE: No obvious chondral defects.There is no hypertrophy of the ligamentum teres nor sign al abnormality at the fovea centralis. LABRUM: There is a small focus of surface irregularity in the anterosuperior labrum. There is, howev er, no interdigitation of fluid signal between the labrum and the acetabulum. TENDONS: No evidence of tendinitis nor tendon tears. ISCHIAL TUBEROSITY/HAMSTRING: There is no abnormal intraosseous signal in the ipsilateral ischial tub erosity nor tear of the common hamstrings tendon attachment site at this level. OTHER: Dominant follicular cyst in the right ovary noted which measures 1.7 x 1.8 cm. IMPRESSION: 1. Minimal right hip findings as described above. No evidence of stress fracture, bone contusion nor obvious tendinitis nor bursitis. 2. Mild surface irregularity of the anterosuperior labrum. No prominent labral tear. No evidence of paralabral cyst. 3. Small amount of increased joint fluid in the hip joint. No prominent hip joint effusion. DATA REPOSITORY:
== END 2024-03-19 03:01 ==
PROVIDERS: PCP Nurse Practitioner Family; Visit Provider Nurse Practitioner Family
DX: M25.551 Pain in right hip (principal)
CPT/HCPCS: 73721

== ENCOUNTER 2024-03-22 12:00 | Outpatient (REF) | payer OTHER, SELFPAY | END 2024-03-22 12:01 | disposition home or self-care (01) | LOC: LBN 12:00 | PROVIDERS: PCP Nurse Practitioner Family; Visit Provider Physician Assistant Medical | DX: J02.9 Acute pharyngitis, unspecified (principal) | CPT/HCPCS: 87077; 87070 ==

== ENCOUNTER 2024-08-06 15:51 | Outpatient (REF) | payer OTHER, SELFPAY ==
--- NOTE | 2024-08-06 15:15 | PAPFT_PTH ---
PATIENT: Nidia Moore LOC: NCN #:[id number] AGE/SX: 29/F ROOM: RE08/06/[address]: Kamilah Solo : 1995 BED: DIS: 08/06/2024 SPEC #: [id number] RECD: 08/07/24 13:08 STATUS: LAUREN HERNÁNDEZ #: [id number] OLIVIA: 08/06/24 15:[address]: Kamilah Solo DEPT: [facility] Cytology RECD BY: Haleigh Boyce Tissues: 1 - CX/ENDOCX FOR PAP SMEARS Procedures: PAP THIN PREP/[facility] Screening Comments: [id number]
[2024-08-06 20:48] LABS: ESR 3 mm/hr (0-20); HCT 40.6 % (36.0-46.0); HGB 13.9 g/dL (11.2-15.7); MCH 29.4 pg (27.0-33.0); MCHC 34.2 % (32.0-36.0); MCV 86 fL (80-95); MPV 10.5 fL (8.0-11.0); Platelet Count 208 10^3/uL (130-400); RBC 4.73 10^6/uL (3.93-5.22); RDW 11.9 % (11.7-14.6); RDW-SD 37.7 fL; WBC 4.71 10^3/uL (4.4-10.8)
[2024-08-06 21:15] LABS: ALT 52 U/L (14-59); AST 29 U/L (15-37); Alkaline Phosphatase 63 U/L (46-116); Anion Gap 6.2 mmol/L (3-11); BUN 15 mg/dL (7-18); Bilirubin, Total 0.4 mg/dL (0.2-1.0); CO2 28.8 mmol/L (21.0-32.0); CREATININE 0.9 mg/dL (0.55-1.02); Calcium 8.6 mg/dL (8.5-10.1); Calculated LDL 79 mg/dL (<100); Chloride 107 mmol/L (98-107); Cholesterol 161 mg/dL (<200); Estimated GFR 88.75 (mL/min/1.73m2); Glucose 93 mg/dL (74-106); HDL Cholesterol 40 mg/dL (>or=50); Sodium 142 mmol/L (136-145); TSH (W/Ref FT4) 1.79 uIU/mL (0.36-3.74); Total Protein 6.4 g/dL (6.4-8.2); Triglyceride 212 mg/dL (<150)
[2024-08-06 21:41] LABS: C-Reactive Protein 1.14 mg/dL (<or=0.5)
[2024-08-07 17:30] LABS: Rheumatoid Factor <8.6 IU/mL (<12.0)
[2024-08-08 15:09] LABS: ANA Interpretation Negative (Negative)
== END 2024-08-06 15:52 | disposition home or self-care (01) ==
LOC: NCHCN 15:51
PROVIDERS: PCP Nurse Practitioner Family; Visit Provider Nurse Practitioner Family
DX: Z00.00 Encounter for general adult medical examination without abnormal findings (principal); H57.89 Other specified disorders of eye and adnexa; E03.9 Hypothyroidism, unspecified; Z12.4 Encounter for screening for malignant neoplasm of cervix; Z01.419 Encounter for gynecological examination (general) (routine) without abnormal findings
CPT/HCPCS: 80053; 80061; 85027; 85652; 88142; 84443; 86038; 86140; 86431